=== PATIENT | female | born 1950 | race Caucasian/White ===

== ENCOUNTER 2023-10-06 06:28 | Inpatient (IN) | payer MEDICARE, OTHER ==
[~2023-10-06] VITALS: Ht 167.6 cm; Wt 68.8 kg
[~2023-10-06 06:28] MED LIST: APIX2.5T PO; ATOR10TA70 PO; FURO20TA4 PO; LAN0.125T PO; LOP25T PO; LOSA1TAB39 PO; METF-438 PO; PANT40TA54 PO
[2023-10-06 07:41] LABS: BASOPHILS # (AUTO) 0.1 X10'3 (0-0.2); BASOPHILS % (AUTO) 0.3 % (0-1); EOSINOPHILS % (AUTO) 0.1 % (0-6); HEMOGLOBIN 12.3 g/dl (12.0-16.0); LYMPHOCYTES # (AUTO) 1.6 X10'3 (1.1-4.8); LYMPHOCYTES % (AUTO) 8.9 % (21-51); MEAN CORPUSCULAR HEMOGLOBIN 26.6 PG (27.0-31.0); MEAN CORPUSCULAR HGB CONC 31.5 g/dL (33.0-36.5); MEAN CORPUSCULAR VOLUME 84.5 FL (78-98); MEAN PLATELET VOLUME 10.6 FL (7.4-10.4); MONOCYTES # (AUTO) 1.9 X10'3 (0-0.9); MONOCYTES % (AUTO) 10.5 % (2-12); NEUTROPHILS # (AUTO) 14.5 X10'3 (1.8-7.7); NEUTROPHILS % (AUTO) 80.2 % (42-75); PLATELET COUNT 170 X10'3 (140-440); RED BLOOD COUNT 4.61 X10'6 (4.20-5.60); RED CELL DISTRIBUTION WIDTH 14.1 % (11.5-14.5); WHITE BLOOD COUNT 18.1 X10'3 (4.5-11.0)
[2023-10-06] MEDS: ondansetron/PF 4mg/2ml inj IV ONE (07:42)
[2023-10-06] MEDS: morphine 4 MG/ML inj SYRINge IV ONE (07:43)
[2023-10-06 07:45] LABS: ALANINE AMINOTRANSFERASE 18 U/L (12-78); ALBUMIN 3.5 G/DL (3.4-5.0); ALBUMIN/GLOBULIN RATIO 0.9 (1.1-1.5); ALKALINE PHOSPHATASE 99 IU/L (46-116); ANION GAP 11 (8-16); ASPARTATE AMINO TRANSFERASE 16 U/L (10-37); BILIRUBIN,TOTAL 0.7 MG/DL (0.1-1.0); BLOOD UREA NITROGEN 45 MG/DL (7-18); BUN/CREATININE RATIO 16.5 (10.0-20.0); CALCIUM 11.1 MG/DL (8.5-10.1); CHLORIDE 101 MMOL/L (99-107); CREATININE 2.72 MG/DL (0.40-0.90); GLUCOSE 125 MG/DL (70-104); LIPASE > 375 U/L (16-77); POTASSIUM 4.9 MMOL/L (3.5-5.1); SODIUM 140 MMOL/L (135-145); TOTAL CARBON DIOXIDE 28.2 MMOL/L (24-32); TOTAL PROTEIN 7.2 G/DL (6.4-8.2); eCRCL 16 ML/MIN; eGFR 17 ML/MIN
[2023-10-06] MEDS: normal saline 1000ML IV soln IVB ONE ×2 (07:48→08:48)
[2023-10-06] MEDS ORDERED: METO25TA6 PO (09:56)
[2023-10-06] MEDS ORDERED: METO100T14 PO (09:56)
[2023-10-06] MEDS ORDERED: PANT-47 PO (09:57)
[2023-10-06] MEDS ORDERED: BUDE10.7 PO (09:58)
[2023-10-06] MEDS ORDERED: dextrose 50%-water 50ml dispensing syringe IV PRN ×2 (10:00)
[2023-10-06] MEDS ORDERED: magnesium 4gm in 100ml NS 100 ML IV PRN (10:00)
[2023-10-06] MEDS ORDERED: potassium Cl 40MEQ/1/2NS 520ml 520 ML IV PRN (10:00)
[2023-10-06] MEDS ORDERED: DEXTROSE 15 GM of carb/4 tabs (each vial/BOTTLE has 4 tablets) PO PRN ×2 (10:00)
[2023-10-06] MEDS ORDERED: HYDROmorphone/PF 0.2 MG/ML SYRINGE IV PRN (10:00)
[2023-10-06] MEDS ORDERED: glucagon, human recombinant 1mg kit SUBCUT PRN (10:00)
[2023-10-06] MEDS ORDERED: magnesium Cl slow-release 64mg tablet PO PRN (10:00)
[2023-10-06] MEDS ORDERED: acetaminophen 325mg tablet PO PRN (10:00)
[2023-10-06] MEDS ORDERED: potassium Cl 20 mEq SR tablet PO PRN (10:00)
[2023-10-06] MEDS: MESSAGE TO PHARMACY PO ONE (10:16)
[2023-10-06] MEDS: normal saline 1000ml 1,000 ML IV SCH (10:22)
[2023-10-06] MEDS: diltiazem 5mg/ml 5ml inj. IV ONE ×2 (10:24→15:19)
[2023-10-06] MEDS: HYDROmorphone inj. 0.5 MG/0.5 ML DISP.SYRIN IV PRN (10:29)
[2023-10-06] MEDS ORDERED: APIX2.5T PO (11:10)
[2023-10-06] MEDS: metoprolol tartrate 50mg tablet PO ONE (15:21)
[2023-10-06] MEDS: insulin glargine (Lantus) pen - multi-dose SQ SCH (19:46)
[2023-10-06] MEDS ORDERED: metoprolol tartrate 25mg tablet PO SCH (20:00)
[2023-10-06] MEDS: apixaban 5mg tablet PO SCH (20:18)
[2023-10-06] MEDS ORDERED: ipratropium/albuterol 3ml nebule NEB PRN (21:30)
[2023-10-06] MEDS: methylPREDNISolone sod succ 125mg/2ml vial IV ONE (22:16)
[2023-10-06 23:27] VITALS: PULSE 114; RESP 18; O2SAT 98
[2023-10-06] MEDS: ipratropium/albuterol 3ml nebule NEB SCH (23:27)
[2023-10-06 23:32] VITALS: PULSE 109; RESP 16
[2023-10-07] VITALS (13 sets, daily range): BP systolic 112–118; BP diastolic 53–62; PULSE 94–132; RESP 15–22; TEMP 97.8–98.6; O2SAT 94–98
[2023-10-07] MEDS: methylPREDNISolone sod succ 125mg/2ml vial IV SCH (02:48)
[2023-10-07 08:04] LABS: BASOPHILS % (AUTO) 0 % (0-1); EOSINOPHILS % (AUTO) 0 % (0-6); HEMATOCRIT 35.7 % (35.0-45.0); HEMOGLOBIN 11.2 g/dl (12.0-16.0); LYMPHOCYTES # (AUTO) 0.8 X10'3 (1.1-4.8); LYMPHOCYTES % (AUTO) 3.9 % (21-51); MEAN CORPUSCULAR HEMOGLOBIN 26.9 PG (27.0-31.0); MEAN CORPUSCULAR HGB CONC 31.3 g/dL (33.0-36.5); MEAN CORPUSCULAR VOLUME 85.8 FL (78-98); MEAN PLATELET VOLUME 10.3 FL (7.4-10.4); MONOCYTES # (AUTO) 0.7 X10'3 (0-0.9); MONOCYTES % (AUTO) 3.7 % (2-12); NEUTROPHILS # (AUTO) 18.2 X10'3 (1.8-7.7); NEUTROPHILS % (AUTO) 92.4 % (42-75); PLATELET COUNT 156 X10'3 (140-440); RED BLOOD COUNT 4.16 X10'6 (4.20-5.60); RED CELL DISTRIBUTION WIDTH 14.3 % (11.5-14.5); WHITE BLOOD COUNT 19.8 X10'3 (4.5-11.0)
[2023-10-07 08:33] LABS: ALANINE AMINOTRANSFERASE 17 U/L (12-78); ALBUMIN/GLOBULIN RATIO 0.8 (1.1-1.5); ALKALINE PHOSPHATASE 89 IU/L (46-116); AMYLASE 300 U/L (25-115); ANION GAP 12 (8-16); ASPARTATE AMINO TRANSFERASE 17 U/L (10-37); BILIRUBIN,TOTAL 0.6 MG/DL (0.1-1.0); BLOOD UREA NITROGEN 47 MG/DL (7-18); BUN/CREATININE RATIO 20.3 (10.0-20.0); CALCIUM 9.6 MG/DL (8.5-10.1); CHLORIDE 106 MMOL/L (99-107); CHOL/HDL RATIO 2.4 (0.00-4.99); CHOLESTEROL 106 MG/DL (0-200); CREATININE 2.31 MG/DL (0.40-0.90); GLUCOSE 158 MG/DL (70-104); HDL CHOLESTEROL 45 MG/DL (35-60); LDL CHOLESTEROL 41 MG/DL (50-100); MAGNESIUM 1.8 MG/DL (1.5-2.4); PHOSPHORUS 4.9 MG/DL (2.3-4.5); POTASSIUM 4.7 MMOL/L (3.5-5.1); SODIUM 146 MMOL/L (135-145); TOTAL CARBON DIOXIDE 28.2 MMOL/L (24-32); TOTAL PROTEIN 6.9 G/DL (6.4-8.2); TRIGLYCERIDES 81 MG/DL (20-135); eCRCL 19 ML/MIN; eGFR 21 ML/MIN
[2023-10-07] MEDS: normal saline 1000ML IV soln IVB ONE (08:44)
[2023-10-07] MEDS: furosemide 20MG tablet PO SCH (08:56)
[2023-10-07] MEDS: pantoprazole 40mg Tablet.DR PO SCH (08:56)
[2023-10-07] MEDS: atorvastatin 10mg tablet PO SCH (09:01)
[2023-10-07] MEDS: losartan 50mg tablet PO SCH (09:01)
[2023-10-07] MEDS: HYDROchlorothiazide 12.5mg capsule PO SCH (09:01)
[2023-10-07] MEDS: metoprolol tartrate 50mg tablet PO SCH (09:02)
[2023-10-07 09:04] LABS: LIPASE > 375 U/L (16-77)
[2023-10-07] MEDS: CefTRIAXone/D5W-Rocephin 1gm 50 ML IV SCH (09:44)
[2023-10-07] MEDS: azithromycin/NS 500mg/250ml 250 ML IV SCH (11:21)
[2023-10-07] MEDS: insulin Lispro (HumaLOG) vial - multi-dose SQ SCH (20:28)
[2023-10-08] VITALS (19 sets, daily range): BP systolic 106–147; BP diastolic 45–73; PULSE 73–134; RESP 13–33; TEMP 97.6–98.9; O2SAT 94–99
[2023-10-08 06:46] LABS: BASOPHILS % (AUTO) 0 % (0-1); EOSINOPHILS % (AUTO) 0 % (0-6); HEMATOCRIT 33.4 % (35.0-45.0); HEMOGLOBIN 10.6 g/dl (12.0-16.0); LYMPHOCYTES # (AUTO) 0.5 X10'3 (1.1-4.8); LYMPHOCYTES % (AUTO) 3.5 % (21-51); MEAN CORPUSCULAR HEMOGLOBIN 26.8 PG (27.0-31.0); MEAN CORPUSCULAR HGB CONC 31.8 g/dL (33.0-36.5); MEAN CORPUSCULAR VOLUME 84.4 FL (78-98); MEAN PLATELET VOLUME 10.3 FL (7.4-10.4); MONOCYTES # (AUTO) 0.6 X10'3 (0-0.9); MONOCYTES % (AUTO) 4.2 % (2-12); NEUTROPHILS # (AUTO) 13.8 X10'3 (1.8-7.7); NEUTROPHILS % (AUTO) 92.3 % (42-75); PLATELET COUNT 169 X10'3 (140-440); RED BLOOD COUNT 3.96 X10'6 (4.20-5.60); RED CELL DISTRIBUTION WIDTH 14.1 % (11.5-14.5); WHITE BLOOD COUNT 14.9 X10'3 (4.5-11.0)
[2023-10-08 06:58] LABS: ALANINE AMINOTRANSFERASE 17 U/L (12-78); ALBUMIN 2.7 G/DL (3.4-5.0); ALBUMIN/GLOBULIN RATIO 0.8 (1.1-1.5); ALKALINE PHOSPHATASE 74 IU/L (46-116); AMYLASE 125 U/L (25-115); ANION GAP 11 (8-16); ASPARTATE AMINO TRANSFERASE 15 U/L (10-37); BILIRUBIN,TOTAL 0.4 MG/DL (0.1-1.0); BLOOD UREA NITROGEN 58 MG/DL (7-18); BUN/CREATININE RATIO 26.2 (10.0-20.0); CALCIUM 9.3 MG/DL (8.5-10.1); CHLORIDE 106 MMOL/L (99-107); CREATININE 2.21 MG/DL (0.40-0.90); GLUCOSE 158 MG/DL (70-104); LIPASE 245 U/L (16-77); MAGNESIUM 1.8 MG/DL (1.5-2.4); PHOSPHORUS 4.7 MG/DL (2.3-4.5); POTASSIUM 3.6 MMOL/L (3.5-5.1); SODIUM 143 MMOL/L (135-145); TOTAL CARBON DIOXIDE 26.1 MMOL/L (24-32); TOTAL PROTEIN 6.3 G/DL (6.4-8.2); eCRCL 20 ML/MIN; eGFR 22 ML/MIN
[2023-10-08] MEDS: HYDROcodone/acetaminophen 10/325mg tab PO PRN (08:20)
[2023-10-08] MEDS: PERFLUTREN PROTEIN-A MICROSPHR (Optison) 0.22 MG/ML 3ML VIAL IV ONE (08:55)
[2023-10-08] MEDS: diltiazem 5mg/ml 5ml inj. IV ONE (15:58)
[2023-10-08] MEDS: diltiazem-NS 100mg/100ml 100 ML IV SCH (20:10)
[2023-10-08] MEDS: ondansetron/PF 4mg/2ml inj IV PRN (20:35)
[2023-10-09] VITALS (23 sets, daily range): BP systolic 105–151; BP diastolic 60–83; PULSE 64–120; RESP 12–23; TEMP 97.5–98.1; O2SAT 92–99
[2023-10-09 07:18] LABS: BASOPHILS % (AUTO) 0.1 % (0-1); EOSINOPHILS % (AUTO) 0 % (0-6); HEMATOCRIT 32.5 % (35.0-45.0); HEMOGLOBIN 10.5 g/dl (12.0-16.0); LYMPHOCYTES # (AUTO) 0.5 X10'3 (1.1-4.8); LYMPHOCYTES % (AUTO) 3.4 % (21-51); MEAN CORPUSCULAR HEMOGLOBIN 26.8 PG (27.0-31.0); MEAN CORPUSCULAR HGB CONC 32.3 g/dL (33.0-36.5); MEAN CORPUSCULAR VOLUME 83.1 FL (78-98); MONOCYTES # (AUTO) 0.7 X10'3 (0-0.9); MONOCYTES % (AUTO) 4.5 % (2-12); NEUTROPHILS # (AUTO) 14.5 X10'3 (1.8-7.7); PLATELET COUNT 196 X10'3 (140-440); RED BLOOD COUNT 3.91 X10'6 (4.20-5.60); WHITE BLOOD COUNT 15.8 X10'3 (4.5-11.0)
[2023-10-09 07:49] LABS: ALANINE AMINOTRANSFERASE 27 U/L (12-78); ALBUMIN 2.6 G/DL (3.4-5.0); ALBUMIN/GLOBULIN RATIO 0.8 (1.1-1.5); ALKALINE PHOSPHATASE 110 IU/L (46-116); AMYLASE 119 U/L (25-115); ANION GAP 12 (8-16); ASPARTATE AMINO TRANSFERASE 29 U/L (10-37); BILIRUBIN,TOTAL 0.5 MG/DL (0.1-1.0); BLOOD UREA NITROGEN 66 MG/DL (7-18); BUN/CREATININE RATIO 35.7 (10.0-20.0); CALCIUM 9.1 MG/DL (8.5-10.1); CHLORIDE 107 MMOL/L (99-107); CREATININE 1.85 MG/DL (0.40-0.90); GLUCOSE 143 MG/DL (70-104); LIPASE 249 U/L (16-77); MAGNESIUM 1.8 MG/DL (1.5-2.4); PHOSPHORUS 3.7 MG/DL (2.3-4.5); POTASSIUM 3.2 MMOL/L (3.5-5.1); SODIUM 143 MMOL/L (135-145); TOTAL CARBON DIOXIDE 24.4 MMOL/L (24-32); eCRCL 24 ML/MIN; eGFR 27 ML/MIN
[2023-10-09] MEDS: docusate sod 100mg capsule PO PRN (08:39)
[2023-10-09] MEDS: HYDROcodone/acetaminophen 5mg/325mg tablet PO PRN (08:39)
[2023-10-09] MEDS: potassium Cl 20 mEq SR tablet PO PRN ×2 (09:51→13:11)
[2023-10-09] MEDS ORDERED: potassium Cl 20 mEq SR tablet PO PRN (12:50)
[2023-10-09] MEDS: metoprolol tartrate 50mg tablet PO ONE (13:54)
[2023-10-09] MEDS: metoprolol tartrate 50mg tablet PO SCH (19:26)
[2023-10-10] VITALS (16 sets, daily range): BP systolic 117–140; BP diastolic 47–79; PULSE 89–123; RESP 16–24; TEMP 97.4–98.1; O2SAT 90–100
[2023-10-10] MEDS: mag hydrox/Alum hydrox/simeth 30ml oral suspension PO PRN (04:34)
[2023-10-10 07:02] LABS: BASOPHILS % (AUTO) 0.1 % (0-1); EOSINOPHILS % (AUTO) 0 % (0-6); HEMATOCRIT 33.4 % (35.0-45.0); HEMOGLOBIN 10.6 g/dl (12.0-16.0); LYMPHOCYTES # (AUTO) 0.5 X10'3 (1.1-4.8); LYMPHOCYTES % (AUTO) 3.6 % (21-51); MEAN CORPUSCULAR HEMOGLOBIN 26.7 PG (27.0-31.0); MEAN CORPUSCULAR HGB CONC 31.8 g/dL (33.0-36.5); MEAN CORPUSCULAR VOLUME 83.9 FL (78-98); MEAN PLATELET VOLUME 9.6 FL (7.4-10.4); MONOCYTES # (AUTO) 0.7 X10'3 (0-0.9); MONOCYTES % (AUTO) 5.9 % (2-12); NEUTROPHILS # (AUTO) 11.5 X10'3 (1.8-7.7); NEUTROPHILS % (AUTO) 90.4 % (42-75); PLATELET COUNT 211 X10'3 (140-440); RED BLOOD COUNT 3.98 X10'6 (4.20-5.60); WHITE BLOOD COUNT 12.7 X10'3 (4.5-11.0)
[2023-10-10 07:32] LABS: ALANINE AMINOTRANSFERASE 25 U/L (12-78); ALBUMIN 2.6 G/DL (3.4-5.0); ALBUMIN/GLOBULIN RATIO 0.8 (1.1-1.5); ALKALINE PHOSPHATASE 94 IU/L (46-116); AMYLASE 108 U/L (25-115); ANION GAP 11 (8-16); ASPARTATE AMINO TRANSFERASE 14 U/L (10-37); BILIRUBIN,TOTAL 0.5 MG/DL (0.1-1.0); BLOOD UREA NITROGEN 68 MG/DL (7-18); BUN/CREATININE RATIO 33.2 (10.0-20.0); CHLORIDE 106 MMOL/L (99-107); CREATININE 2.05 MG/DL (0.40-0.90); GLUCOSE 183 MG/DL (70-104); LIPASE 171 U/L (16-77); MAGNESIUM 1.7 MG/DL (1.5-2.4); PHOSPHORUS 4.6 MG/DL (2.3-4.5); POTASSIUM 3.7 MMOL/L (3.5-5.1); SODIUM 144 MMOL/L (135-145); TOTAL CARBON DIOXIDE 26.9 MMOL/L (24-32); eCRCL 22 ML/MIN; eGFR 24 ML/MIN
[2023-10-10] MEDS: magnesium hydroxide 30ml (MOM) UD suspension PO PRN (08:16)
[2023-10-10 10:32] LABS: ABG BASE EXCESS -0.8 mmol/L (-2.0-2.0); ABG HCO3 24.3 mmol/L (22.0-26.0); ABG OXYGEN SATURATION 97.7 % (94-97); ABG PCO2 (T) 41.6 mmHg (32.0-45.0); ABG PH (T) 7.383 (7.350-7.450); ABG PO2 (T) 100.7 mmHg (75.0-100.0); ALLEN'S TEST POSITIVE; FCOHb 0.1 % (0.0-3.9); FHHb 2.3 % (0.0-5.0); FLOW 4 L/min; FMetHb 0.3 % (0.0-1.5); FO2Hb 97.3 % (94-97); MODE NASAL CANNULA; PATIENT TEMPERATURE 36.9; TOTAL HEMOGLOBIN 12.3 G/dl (12.0-16.0)
[2023-10-10] MEDS: furosemide 40mg/4ml inj IV ONE (11:25)
[2023-10-10] MEDS: morphine 4 MG/ML inj SYRINge IV ONE (22:25)
[2023-10-10] MEDS ORDERED: naloxone 0.4 mg/ml inj IV PRN (23:45)
[2023-10-11] VITALS (14 sets, daily range): BP systolic 124–151; BP diastolic 63–92; PULSE 89–120; RESP 12–22; TEMP 96.9–97.9; O2SAT 89–99
[2023-10-11] MEDS: furosemide 40mg/4ml inj IV ONE (00:05)
[2023-10-11] MEDS: HYDROmorphone inj. 0.5 MG/0.5 ML DISP.SYRIN IV ONE (00:05)
[2023-10-11] MEDS ORDERED: pantoprazole 40 MG vial IV ONE (00:20)
[2023-10-11] MEDS ORDERED: HYDROmorph/NS 0.2 mg/ml PCA 100 ML IV SCH (01:00)
[2023-10-11] MEDS: normal saline 1000ml 1,000 ML IV SCH (01:02)
[2023-10-11] MEDS: HYDROmorph/NS 0.2 mg/ml PCA 100 ML IV SCH (03:23)
[2023-10-11 06:29] LABS: BASOPHILS % (AUTO) 0.1 % (0-1); EOSINOPHILS % (AUTO) 0 % (0-6); HEMATOCRIT 36.3 % (35.0-45.0); HEMOGLOBIN 11.6 g/dl (12.0-16.0); LYMPHOCYTES # (AUTO) 0.5 X10'3 (1.1-4.8); LYMPHOCYTES % (AUTO) 3.2 % (21-51); MEAN CORPUSCULAR HEMOGLOBIN 26.4 PG (27.0-31.0); MEAN CORPUSCULAR HGB CONC 31.8 g/dL (33.0-36.5); MEAN CORPUSCULAR VOLUME 83.1 FL (78-98); MONOCYTES # (AUTO) 1.1 X10'3 (0-0.9); MONOCYTES % (AUTO) 7.2 % (2-12); NEUTROPHILS # (AUTO) 13.5 X10'3 (1.8-7.7); NEUTROPHILS % (AUTO) 89.5 % (42-75); PLATELET COUNT 217 X10'3 (140-440); RED BLOOD COUNT 4.37 X10'6 (4.20-5.60); RED CELL DISTRIBUTION WIDTH 14.3 % (11.5-14.5); WHITE BLOOD COUNT 15.1 X10'3 (4.5-11.0)
[2023-10-11] MEDS: potassium cl 20mEq in 1/2 NS 1,000 ML IV SCH (06:45)
[2023-10-11 07:03] LABS: ALANINE AMINOTRANSFERASE 22 U/L (12-78); ALBUMIN 2.7 G/DL (3.4-5.0); ALBUMIN/GLOBULIN RATIO 0.9 (1.1-1.5); ALKALINE PHOSPHATASE 90 IU/L (46-116); AMYLASE 148 U/L (25-115); ANION GAP 11 (8-16); ASPARTATE AMINO TRANSFERASE 13 U/L (10-37); BILIRUBIN,TOTAL 0.6 MG/DL (0.1-1.0); BLOOD UREA NITROGEN 72 MG/DL (7-18); BUN/CREATININE RATIO 35.8 (10.0-20.0); CALCIUM 9.3 MG/DL (8.5-10.1); CHLORIDE 109 MMOL/L (99-107); CREATININE 2.01 MG/DL (0.40-0.90); GLUCOSE 158 MG/DL (70-104); LIPASE 186 U/L (16-77); MAGNESIUM 2.2 MG/DL (1.5-2.4); PHOSPHORUS 5.2 MG/DL (2.3-4.5); POTASSIUM 3.2 MMOL/L (3.5-5.1); SODIUM 150 MMOL/L (135-145); TOTAL CARBON DIOXIDE 29.7 MMOL/L (24-32); TOTAL PROTEIN 5.8 G/DL (6.4-8.2); eCRCL 22 ML/MIN; eGFR 24 ML/MIN
[2023-10-11] MEDS ORDERED: pantoprazole 40 MG vial IV SCH (08:00)
[2023-10-11] MEDS: furosemide 40mg/4ml inj IV SCH (08:00)
[2023-10-11] MEDS ORDERED: apixaban 2.5mg tablet PO SCH ×2 (08:00)
[2023-10-11] MEDS: PCA WASTE DOCUMENTATION 1 MG ML MC SCH (08:00)
[2023-10-11] MEDS ORDERED: furosemide 40mg/4ml inj IV SCH (08:00)
[2023-10-11] MEDS: pantoprazole 40 MG vial IV SCH (08:56)
[2023-10-11] MEDS: potassium Cl 40MEQ/1/2NS 520ml 520 ML IV PRN (13:34)
[2023-10-12] VITALS (10 sets, daily range): BP systolic 122–153; BP diastolic 82–101; PULSE 92–182; RESP 14–32; TEMP 97.5–98; O2SAT 93–98
[2023-10-12 07:06] LABS: AMYLASE 124 U/L (25-115); LIPASE 135 U/L (16-77)
[2023-10-12] MEDS ORDERED: LORazepam 0.5 MG tablet PO PRN (12:35)
[2023-10-12] MEDS: LORazepam 2 mg/ml vial IV PRN (14:45)
[2023-10-12] MEDS: traZODone 50mg tablet PO SCH (20:30)
[2023-10-12] MEDS: metoprolol tartrate 1mg/ml inj IV ONE (22:23)
[2023-10-12] MEDS: nicotine 7mg patch - 24hr TD ONE (22:26)
[2023-10-13] VITALS (15 sets, daily range): BP systolic 115–148; BP diastolic 60–95; PULSE 94–139; RESP 18–35; TEMP 97.1–98.1; O2SAT 93–100
[2023-10-13] MEDS: nicotine 7mg patch - 24hr TD SCH (08:45)
[2023-10-13 09:49] LABS: BASOPHILS % (AUTO) 0.1 % (0-1); EOSINOPHILS % (AUTO) 0 % (0-6); HEMATOCRIT 37.1 % (35.0-45.0); HEMOGLOBIN 11.6 g/dl (12.0-16.0); LYMPHOCYTES # (AUTO) 0.7 X10'3 (1.1-4.8); LYMPHOCYTES % (AUTO) 3.5 % (21-51); MEAN CORPUSCULAR HEMOGLOBIN 25.9 PG (27.0-31.0); MEAN CORPUSCULAR HGB CONC 31.3 g/dL (33.0-36.5); MEAN PLATELET VOLUME 9.7 FL (7.4-10.4); MONOCYTES % (AUTO) 5.1 % (2-12); NEUTROPHILS # (AUTO) 17.6 X10'3 (1.8-7.7); NEUTROPHILS % (AUTO) 91.3 % (42-75); PLATELET COUNT 238 X10'3 (140-440); RED BLOOD COUNT 4.47 X10'6 (4.20-5.60); WHITE BLOOD COUNT 19.3 X10'3 (4.5-11.0)
[2023-10-13 10:21] LABS: ALANINE AMINOTRANSFERASE 19 U/L (12-78); ALBUMIN 2.3 G/DL (3.4-5.0); ALBUMIN/GLOBULIN RATIO 0.8 (1.1-1.5); ALKALINE PHOSPHATASE 74 IU/L (46-116); ANION GAP 12 (8-16); ASPARTATE AMINO TRANSFERASE 21 U/L (10-37); BILIRUBIN,TOTAL 0.6 MG/DL (0.1-1.0); BLOOD UREA NITROGEN 80 MG/DL (7-18); BUN/CREATININE RATIO 49.7 (10.0-20.0); CALCIUM 9.6 MG/DL (8.5-10.1); CHLORIDE 112 MMOL/L (99-107); CREATININE 1.61 MG/DL (0.40-0.90); GLUCOSE 165 MG/DL (70-104); SODIUM 149 MMOL/L (135-145); TOTAL CARBON DIOXIDE 24.6 MMOL/L (24-32); TOTAL PROTEIN 5.3 G/DL (6.4-8.2); eCRCL 29 ML/MIN; eGFR 31 ML/MIN
[2023-10-14] VITALS (10 sets, daily range): BP systolic 121–137; BP diastolic 63–85; PULSE 98–126; RESP 16–23; TEMP 97–97.5; O2SAT 93–99
[2023-10-14] MEDS: insulin regular, human U-100 3ml vial - multi-dose SQ SCH (02:15)
[2023-10-14] MEDS: pantoprazole 40mg Tablet.DR PO SCH (07:30)
[2023-10-14] MEDS: sodium chloride 0.45% 1,000 ML IV SCH (08:21)
[2023-10-14 08:41] LABS: ALANINE AMINOTRANSFERASE 24 U/L (12-78); ALBUMIN 2.2 G/DL (3.4-5.0); ALBUMIN/GLOBULIN RATIO 0.8 (1.1-1.5); ALKALINE PHOSPHATASE 76 IU/L (46-116); ANION GAP 10 (8-16); ASPARTATE AMINO TRANSFERASE 20 U/L (10-37); BILIRUBIN,TOTAL 0.5 MG/DL (0.1-1.0); BLOOD UREA NITROGEN 84 MG/DL (7-18); BUN/CREATININE RATIO 55.6 (10.0-20.0); CALCIUM 9.5 MG/DL (8.5-10.1); CHLORIDE 114 MMOL/L (99-107); CREATININE 1.51 MG/DL (0.40-0.90); GLUCOSE 213 MG/DL (70-104); PREALBUMIN 14.8 MG/DL (19-36); SODIUM 149 MMOL/L (135-145); TOTAL CARBON DIOXIDE 25.1 MMOL/L (24-32); eCRCL 31 ML/MIN; eGFR 34 ML/MIN
[2023-10-14 09:05] LABS: POTASSIUM 4.4 MMOL/L (3.5-5.1)
[2023-10-14] MEDS: HYDROmorphone inj. 0.5 MG/0.5 ML DISP.SYRIN IV PRN (14:05)
[2023-10-14] MEDS: albumin (human) 25% 100 ML IV solution IV ONE (14:55)
[2023-10-14 15:07] LABS: ABG BASE EXCESS 0.4 mmol/L (-2.0-2.0); ABG HCO3 26.2 mmol/L (22.0-26.0); ABG OXYGEN SATURATION 96.2 % (94-97); ABG PCO2 (T) 44.7 mmHg (32.0-45.0); ABG PH (T) 7.381 (7.350-7.450); ABG PO2 (T) 79.6 mmHg (75.0-100.0); ALLEN'S TEST POSITIVE; FCOHb 0.4 % (0.0-3.9); FHHb 3.8 % (0.0-5.0); FMetHb 0.3 % (0.0-1.5); FO2Hb 95.5 % (94-97); MODE NASAL CANNULA; PATIENT TEMPERATURE 36.1; PEEP 5 cm H2O; TOTAL HEMOGLOBIN 13.2 G/dl (12.0-16.0)
[2023-10-14] MEDS: metroNIDAZOLE-Flagyl 500mg/NS 100 ML IV SCH (16:31)
[2023-10-14] MEDS: levoFLOXACIN-Levaquin 500mg/D5 100 ML IV SCH (17:44)
[2023-10-14 17:45] LABS: URINE HCG NEGATIVE (NEG)
[2023-10-14 18:31] LABS: SODIUM,URINE RANDOM < 15 MEQ/L; TOTAL PROTEIN,URINE RANDOM 46.7 MG/DL
[2023-10-15] VITALS (12 sets, daily range): BP systolic 106–121; BP diastolic 50–80; PULSE 98–125; RESP 0–22; TEMP 97.2–98.1; O2SAT 92–98
[2023-10-15 06:44] LABS: BASOPHILS % (AUTO) 0.1 % (0-1); EOSINOPHILS # (AUTO) 0.1 X10'3 (0-0.9); EOSINOPHILS % (AUTO) 0.4 % (0-6); HEMATOCRIT 35.7 % (35.0-45.0); HEMOGLOBIN 11.1 g/dl (12.0-16.0); LYMPHOCYTES # (AUTO) 0.5 X10'3 (1.1-4.8); LYMPHOCYTES % (AUTO) 2.3 % (21-51); MEAN CORPUSCULAR HEMOGLOBIN 26.5 PG (27.0-31.0); MEAN CORPUSCULAR HGB CONC 31.2 g/dL (33.0-36.5); MONOCYTES # (AUTO) 1.1 X10'3 (0-0.9); MONOCYTES % (AUTO) 5.1 % (2-12); NEUTROPHILS # (AUTO) 20.9 X10'3 (1.8-7.7); NEUTROPHILS % (AUTO) 92.1 % (42-75); PLATELET COUNT 180 X10'3 (140-440); RED CELL DISTRIBUTION WIDTH 14.4 % (11.5-14.5); WHITE BLOOD COUNT 22.6 X10'3 (4.5-11.0)
[2023-10-15] MEDS: LidoCAINE 2% Topical Jelly 11mL syringe TOP ONE ×2 (08:35→08:40)
[2023-10-15 10:04] LABS: BILIRUBIN,URINE NEGATIVE (Neg); CLARITY,URINE CLEAR (Clear); COLOR,URINE YELLOW (Yellow); GLUCOSE, URINE 100 mg/dl (Neg); KETONES,URINE NEGATIVE (Neg); LEUKOCYTE ESTERASE ,URINE NEGATIVE (Neg); NITRITES, URINE NEGATIVE (Neg); OCCULT BLOOD,URINE TRACE-INTACT (Neg); PH,URINE 5.5 (4.8-8.0); PROTEIN,URINE NEGATIVE (Neg); UROBILINOGEN,URINE 0.2 E.U/dL (0.2-1.0)
[2023-10-15 10:19] LABS: UA COLLECTION TYPE NON-SPECIFIED
[2023-10-15 10:25] LABS: BACTERIA,URINE NONE SEEN /HPF (Neg); SQUAMOUS EPITHELIAL CELL,UR FEW /LPF (FEW); WBC,URINE 0-4 /HPF (0-4)
[2023-10-15] MEDS: pantoprazole 40 MG vial IV ONE (11:55)
[2023-10-15] MEDS ORDERED: acetaminophen 325mg tablet CORPAK PRN (12:00)
[2023-10-15] MEDS ORDERED: DEXTROSE 15 GM of carb/4 tabs (each vial/BOTTLE has 4 tablets) CORPAK PRN ×2 (12:01)
[2023-10-15] MEDS ORDERED: docusate sodium 100mg/10ml UD cup CORPAK PRN (12:02)
[2023-10-15] MEDS ORDERED: magnesium hydroxide 30ml (MOM) UD suspension CORPAK PRN (12:05)
[2023-10-15] MEDS ORDERED: mag hydrox/Alum hydrox/simeth 30ml oral suspension CORPAK PRN (12:05)
[2023-10-15 12:24] LABS: ALANINE AMINOTRANSFERASE 29 U/L (12-78); ALBUMIN 2.6 G/DL (3.4-5.0); ALBUMIN/GLOBULIN RATIO 1.2 (1.1-1.5); ALKALINE PHOSPHATASE 69 IU/L (46-116); ANION GAP 12 (8-16); ASPARTATE AMINO TRANSFERASE 18 U/L (10-37); BILIRUBIN,TOTAL 0.4 MG/DL (0.1-1.0); BLOOD UREA NITROGEN 82 MG/DL (7-18); BUN/CREATININE RATIO 58.2 (10.0-20.0); CALCIUM 9.5 MG/DL (8.5-10.1); CHLORIDE 114 MMOL/L (99-107); CREATINE KINASE 45 U/L (26-192); CREATININE 1.41 MG/DL (0.40-0.90); GLUCOSE 261 MG/DL (70-104); PHOSPHORUS 3.8 MG/DL (2.3-4.5); POTASSIUM 3.8 MMOL/L (3.5-5.1); SODIUM 151 MMOL/L (135-145); TOTAL CARBON DIOXIDE 25.4 MMOL/L (24-32); TOTAL PROTEIN 4.8 G/DL (6.4-8.2); eCRCL 33 ML/MIN; eGFR 36 ML/MIN
[2023-10-15] MEDS: traZODone 50mg tablet CORPAK SCH (20:00)
[2023-10-15] MEDS: metoprolol tartrate 50mg tablet CORPAK SCH (20:00)
[2023-10-15] MEDS: meropenem inj 500 MG in normal saline 100ml IV soln 100 ML IV SCH (22:00)
[2023-10-15] MEDS: pantoprazole 40 MG vial IV SCH (22:15)
[2023-10-15] MEDS ORDERED: propofol inj 20 ML IV ONE (23:35)
[2023-10-15] MEDS ORDERED: rocuronium 10mg/ml inj IV ONE (23:35)
[2023-10-15] MEDS ORDERED: fentaNYL /PF 50mcg/ml 5ml ampule ONE (23:35)
[2023-10-15] MEDS ORDERED: NORepinephrine 8 MG in NS 250 ML BAG (32 mcg/ml) IV ONE (23:43)
[2023-10-15] MEDS ORDERED: ePHEDrine 50MG/ML INJ. ONE (23:43)
[2023-10-15] MEDS ORDERED: sevoflurane 250ml liquid IH ONE (23:43)
[2023-10-16] VITALS (44 sets, daily range): BP systolic 90–151; BP diastolic 32–77; PULSE 81–129; RESP 11–32; TEMP 96.7–97.6; O2SAT 92–100
[2023-10-16] MEDS ORDERED: ceFOXitin 1000 MG inj ONE ×2 (00:03)
[2023-10-16] MEDS ORDERED: albumin (Human) 5% 250ml 250 ML IV ONE ×3 (00:20→00:58)
[2023-10-16] MEDS ORDERED: naloxone 0.4 mg/ml inj IV PRN (01:25)
[2023-10-16] MEDS: fentaNYL/PF 50MCG/1 ML 2ML syringe ONE (01:53)
[2023-10-16 02:05] LABS: ABG BASE EXCESS 0.4 mmol/L (-2.0-2.0); ABG HCO3 25.5 mmol/L (22.0-26.0); ABG OXYGEN SATURATION 90.4 % (94-97); ABG PCO2 (T) 41.4 mmHg (32.0-45.0); ABG PH (T) 7.403 (7.350-7.450); ABG PO2 (T) 55.2 mmHg (75.0-100.0); ALLEN'S TEST POSITIVE; FCOHb 0.2 % (0.0-3.9); FHHb 9.6 % (0.0-5.0); FMetHb 0.3 % (0.0-1.5); FO2Hb 89.9 % (94-97); MODE VENT - SIMV; PATIENT TEMPERATURE 36.1; PEEP 5 cm H2O; RESPIRATORY RATE 12 b/min; TIDAL VOLUME 500 mL; TOTAL HEMOGLOBIN 11.1 G/dl (12.0-16.0)
[2023-10-16] MEDS: midazolam 100mg in NS 100ml 100 ML IV PRN (02:28)
[2023-10-16 03:05] LABS: ALANINE AMINOTRANSFERASE 25 U/L (12-78); ALBUMIN 2.8 G/DL (3.4-5.0); ALBUMIN/GLOBULIN RATIO 1.9 (1.1-1.5); ALKALINE PHOSPHATASE 51 IU/L (46-116); ANION GAP 7 (8-16); ASPARTATE AMINO TRANSFERASE 16 U/L (10-37); BILIRUBIN,TOTAL 0.8 MG/DL (0.1-1.0); BLOOD UREA NITROGEN 79 MG/DL (7-18); BUN/CREATININE RATIO 48.5 (10.0-20.0); CHLORIDE 115 MMOL/L (99-107); CREATININE 1.63 MG/DL (0.40-0.90); GLUCOSE 175 MG/DL (70-104); MAGNESIUM 1.7 MG/DL (1.5-2.4); PHOSPHORUS 3.7 MG/DL (2.3-4.5); POTASSIUM 3.4 MMOL/L (3.5-5.1); SODIUM 152 MMOL/L (135-145); TOTAL CARBON DIOXIDE 29.7 MMOL/L (24-32); TOTAL PROTEIN 4.3 G/DL (6.4-8.2); eCRCL 28 ML/MIN; eGFR 31 ML/MIN
[2023-10-16 03:25] LABS: BASOPHILS # (AUTO) 0.1 X10'3 (0-0.2); BASOPHILS % (AUTO) 0.2 % (0-1); EOSINOPHILS % (AUTO) 0.1 % (0-6); HEMOGLOBIN 10.2 g/dl (12.0-16.0); LYMPHOCYTES # (AUTO) 0.8 X10'3 (1.1-4.8); LYMPHOCYTES % (AUTO) 2.4 % (21-51); MEAN CORPUSCULAR HEMOGLOBIN 26.3 PG (27.0-31.0); MEAN CORPUSCULAR HGB CONC 31.9 g/dL (33.0-36.5); MEAN CORPUSCULAR VOLUME 82.4 FL (78-98); MEAN PLATELET VOLUME 10.5 FL (7.4-10.4); MONOCYTES % (AUTO) 2.7 % (2-12); NEUTROPHILS % (AUTO) 94.6 % (42-75); PLATELET COUNT 139 X10'3 (140-440); RED BLOOD COUNT 3.89 X10'6 (4.20-5.60)
[2023-10-16 03:32] LABS: WHITE BLOOD COUNT 34.9 X10'3 (4.5-11.0)
[2023-10-16 04:19] LABS: PLATELET ESTIMATE DECREASED; TOTAL CELLS COUNTED 100
[2023-10-16 04:22] LABS: ELLIPTOCYTES FEW; HYPOCHROMASIA 1+; POIKILOCYTOSIS FEW
[2023-10-16 04:23] LABS: HYPERSEGMENTED NEUTROPHILS FEW; LARGE PLATELETS FEW
[2023-10-16] MEDS ORDERED: magnesium 2GM in 50ml NS 50 ML IV PRN (04:25)
[2023-10-16] MEDS ORDERED: magnesium 4gm in 100ml NS 100 ML IV PRN (04:25)
[2023-10-16] MEDS: potassium Cl 40MEQ/270ML bag 270 ML IV PRN (05:22)
[2023-10-16] MEDS: albumin (Human) 5% 250ml 250 ML IV ONE ×6 (05:48→21:05)
[2023-10-16] MEDS: losartan 50mg tablet CORPAK SCH (08:00)
[2023-10-16] MEDS: atorvastatin 10mg tablet CORPAK SCH (08:00)
[2023-10-16] MEDS: diltiazem 5mg/ml 5ml inj. IV ONE (08:46)
[2023-10-16] MEDS ORDERED: SODIUM CHLORIDE 0.45% IV SCH (09:00)
[2023-10-16] MEDS ORDERED: Potassium Cl inj 40 MEQ in sodium chloride 0.45% 980 ML IV SCH (09:00)
[2023-10-16] MEDS ORDERED: POTASSIUM ACETATE IV SCH (09:00)
[2023-10-16 09:32] LABS: BILIRUBIN,URINE NEGATIVE (Neg); CLARITY,URINE SLIGHTLY CLOUDY (Clear); COLOR,URINE YELLOW (Yellow); GLUCOSE, URINE NEGATIVE (Neg); KETONES,URINE TRACE mg/dl (Neg); LEUKOCYTE ESTERASE ,URINE NEGATIVE (Neg); NITRITES, URINE NEGATIVE (Neg); OCCULT BLOOD,URINE SMALL (Neg); PH,URINE 5.5 (4.8-8.0); PROTEIN,URINE NEGATIVE (Neg); UROBILINOGEN,URINE 0.2 E.U/dL (0.2-1.0)
[2023-10-16] MEDS: diltiazem-NS 100mg/100ml 100 ML IV SCH (09:33)
[2023-10-16] MEDS: fluconazole-Diflucan 200mg/NS 100 ML IV SCH (09:33)
[2023-10-16] MEDS: Potassium Cl inj 40 MEQ in sodium chloride 0.45% 1,000 ML IV SCH (09:34)
[2023-10-16 09:44] LABS: ALANINE AMINOTRANSFERASE 21 U/L (12-78); ALBUMIN 3.2 G/DL (3.4-5.0); ALBUMIN/GLOBULIN RATIO 2.5 (1.1-1.5); ALKALINE PHOSPHATASE 37 IU/L (46-116); ANION GAP 11 (8-16); ASPARTATE AMINO TRANSFERASE 12 U/L (10-37); BILIRUBIN,TOTAL 1.2 MG/DL (0.1-1.0); BLOOD UREA NITROGEN 72 MG/DL (7-18); BUN/CREATININE RATIO 43.6 (10.0-20.0); CALCIUM 8.4 MG/DL (8.5-10.1); CHLORIDE 117 MMOL/L (99-107); CREATININE 1.65 MG/DL (0.40-0.90); GLUCOSE 193 MG/DL (70-104); POTASSIUM 3.8 MMOL/L (3.5-5.1); SODIUM 154 MMOL/L (135-145); TOTAL CARBON DIOXIDE 26.2 MMOL/L (24-32); TOTAL PROTEIN 4.5 G/DL (6.4-8.2); eCRCL 28 ML/MIN; eGFR 30 ML/MIN
[2023-10-16 09:45] LABS: UA COLLECTION TYPE NON-SPECIFIED
[2023-10-16] MEDS: K and/or MAG REPLACEMENT MC SCH (10:04)
[2023-10-16 10:13] LABS: SQUAMOUS EPITHELIAL CELL,UR FEW /LPF (FEW)
[2023-10-16 10:14] LABS: BACTERIA,URINE FEW /HPF (Neg); WBC,URINE 0-4 /HPF (0-4)
[2023-10-16] MEDS: FENTANYL-0.9 % NACL/PF 100 ML IV PRN (10:42)
[2023-10-16] MEDS: meropenem inj 500 MG in normal saline 100ml IV soln 100 ML IV SCH (20:07)
[2023-10-16] MEDS: normal saline 1000ml 1,000 ML IVB ONE (23:25)
[2023-10-17] VITALS (39 sets, daily range): BP systolic 85–126; BP diastolic 38–59; PULSE 68–131; RESP 1–21; O2SAT 92–100
[2023-10-17] MEDS: albumin (Human) 5% 250ml 250 ML IV ONE ×3 (00:29→12:40)
[2023-10-17 02:39] LABS: BASOPHILS % (AUTO) 0 % (0-1); EOSINOPHILS % (AUTO) 0 % (0-6); HEMATOCRIT 24.5 % (35.0-45.0); HEMOGLOBIN 7.6 g/dl (12.0-16.0); LYMPHOCYTES # (AUTO) 0.7 X10'3 (1.1-4.8); LYMPHOCYTES % (AUTO) 2.2 % (21-51); MEAN CORPUSCULAR HEMOGLOBIN 25.4 PG (27.0-31.0); MEAN CORPUSCULAR HGB CONC 30.9 g/dL (33.0-36.5); MEAN CORPUSCULAR VOLUME 82.3 FL (78-98); MEAN PLATELET VOLUME 11.2 FL (7.4-10.4); MONOCYTES # (AUTO) 1.2 X10'3 (0-0.9); MONOCYTES % (AUTO) 3.5 % (2-12); NEUTROPHILS # (AUTO) 32.1 X10'3 (1.8-7.7); NEUTROPHILS % (AUTO) 94.3 % (42-75); PLATELET COUNT 94 X10'3 (140-440); RED BLOOD COUNT 2.98 X10'6 (4.20-5.60); RED CELL DISTRIBUTION WIDTH 14.7 % (11.5-14.5)
[2023-10-17 02:53] LABS: ALANINE AMINOTRANSFERASE 16 U/L (12-78); ALBUMIN/GLOBULIN RATIO 2.3 (1.1-1.5); ALKALINE PHOSPHATASE 31 IU/L (46-116); ANION GAP 10 (8-16); ASPARTATE AMINO TRANSFERASE 8 U/L (10-37); BILIRUBIN,TOTAL 0.8 MG/DL (0.1-1.0); BLOOD UREA NITROGEN 66 MG/DL (7-18); BUN/CREATININE RATIO 44.6 (10.0-20.0); CALCIUM 9.6 MG/DL (8.5-10.1); CHLORIDE 117 MMOL/L (99-107); CREATININE 1.48 MG/DL (0.40-0.90); GLUCOSE 249 MG/DL (70-104); SODIUM 154 MMOL/L (135-145); TOTAL CARBON DIOXIDE 26.7 MMOL/L (24-32); TOTAL PROTEIN 4.3 G/DL (6.4-8.2); eCRCL 31 ML/MIN; eGFR 34 ML/MIN
[2023-10-17 03:58] LABS: MAGNESIUM 1.7 MG/DL (1.5-2.4); PHOSPHORUS 2.9 MG/DL (2.3-4.5)
[2023-10-17 04:41] LABS: PLATELET ESTIMATE DECREASED; TOTAL CELLS COUNTED 100
[2023-10-17 04:42] LABS: BURR CELLS FEW; HYPOCHROMASIA 1+; SCHISTOCYTES FEW
[2023-10-17 04:43] LABS: LARGE PLATELETS FEW
[2023-10-17 04:44] LABS: HYPERSEGMENTED NEUTROPHILS FEW
[2023-10-17 04:55] LABS: ABG BASE EXCESS 0.2 mmol/L (-2.0-2.0); ABG HCO3 24.5 mmol/L (22.0-26.0); ABG OXYGEN SATURATION 97.5 % (94-97); ABG PCO2 (T) 37.1 mmHg (32.0-45.0); ABG PH (T) 7.435 (7.350-7.450); ALLEN'S TEST Modified; FCOHb 0.3 % (0.0-3.9); FHHb 2.5 % (0.0-5.0); FMetHb 0.3 % (0.0-1.5); FO2Hb 96.9 % (94-97); MODE VENT - SIMV; PATIENT TEMPERATURE 36.2; PEEP 5 cm H2O; RESPIRATORY RATE 12 b/min; TIDAL VOLUME 500 mL; TOTAL HEMOGLOBIN 8.7 G/dl (12.0-16.0)
[2023-10-17] MEDS ORDERED: sevoflurane 250ml liquid IH ONE (09:15)
[2023-10-17] MEDS ORDERED: albumin (Human) 5% 250ml 250 ML IV ONE ×2 (09:29→10:02)
[2023-10-17] MEDS ORDERED: fentaNYL/PF 50MCG/1 ML 2ML syringe ONE (09:29)
[2023-10-17] MEDS ORDERED: MIDAZolam 1 MG/ML 5ML VIAL ONE (09:29)
[2023-10-17] MEDS ORDERED: rocuronium 10mg/ml inj IV ONE (09:30)
[2023-10-17 12:36] LABS: BASOPHILS % (AUTO) 0 % (0-1); EOSINOPHILS % (AUTO) 0.1 % (0-6); HEMATOCRIT 26.1 % (35.0-45.0); LYMPHOCYTES # (AUTO) 0.7 X10'3 (1.1-4.8); MEAN CORPUSCULAR HEMOGLOBIN 25.6 PG (27.0-31.0); MEAN CORPUSCULAR HGB CONC 30.8 g/dL (33.0-36.5); MEAN CORPUSCULAR VOLUME 83.1 FL (78-98); MEAN PLATELET VOLUME 11.6 FL (7.4-10.4); MONOCYTES # (AUTO) 1.4 X10'3 (0-0.9); MONOCYTES % (AUTO) 3.9 % (2-12); NEUTROPHILS # (AUTO) 34.2 X10'3 (1.8-7.7); PLATELET COUNT 99 X10'3 (140-440); RED BLOOD COUNT 3.14 X10'6 (4.20-5.60); RED CELL DISTRIBUTION WIDTH 14.3 % (11.5-14.5)
[2023-10-17 12:39] LABS: WHITE BLOOD COUNT 36.4 X10'3 (4.5-11.0)
[2023-10-17 12:47] LABS: ALBUMIN 3.4 G/DL (3.4-5.0); ANION GAP 7 (8-16); BLOOD UREA NITROGEN 63 MG/DL (7-18); BUN/CREATININE RATIO 46.3 (10.0-20.0); CALCIUM 9.9 MG/DL (8.5-10.1); CHLORIDE 119 MMOL/L (99-107); CREATININE 1.36 MG/DL (0.40-0.90); GLUCOSE 151 MG/DL (70-104); POTASSIUM 4.5 MMOL/L (3.5-5.1); SODIUM 152 MMOL/L (135-145); TOTAL CARBON DIOXIDE 26.3 MMOL/L (24-32); eCRCL 34 ML/MIN; eGFR 38 ML/MIN
[2023-10-17] MEDS ORDERED: APIX5TAB3 PO (16:47)
[2023-10-17] MEDS ORDERED: DUPI300P SQ (16:47)
[2023-10-17] MEDS: metoprolol tartrate 1mg/ml inj IV SCH (23:36)
[2023-10-18] VITALS (40 sets, daily range): BP systolic 83–130; BP diastolic 38–72; PULSE 97–135; RESP 12–22; O2SAT 99–100
[2023-10-18 03:16] LABS: ALANINE AMINOTRANSFERASE 18 U/L (12-78); ALBUMIN 3.2 G/DL (3.4-5.0); ALBUMIN/GLOBULIN RATIO 2.5 (1.1-1.5); ALKALINE PHOSPHATASE 33 IU/L (46-116); ANION GAP 9 (8-16); ASPARTATE AMINO TRANSFERASE 13 U/L (10-37); BILIRUBIN,TOTAL 0.8 MG/DL (0.1-1.0); BLOOD UREA NITROGEN 60 MG/DL (7-18); BUN/CREATININE RATIO 45.5 (10.0-20.0); CALCIUM 10.1 MG/DL (8.5-10.1); CHLORIDE 118 MMOL/L (99-107); CREATININE 1.32 MG/DL (0.40-0.90); GLUCOSE 125 MG/DL (70-104); POTASSIUM 4.8 MMOL/L (3.5-5.1); SODIUM 153 MMOL/L (135-145); TOTAL CARBON DIOXIDE 26.1 MMOL/L (24-32); TOTAL PROTEIN 4.5 G/DL (6.4-8.2); eCRCL 35 ML/MIN; eGFR 39 ML/MIN
[2023-10-18 04:17] LABS: ABG BASE EXCESS -2.9 mmol/L (-2.0-2.0); ABG HCO3 21.2 mmol/L (22.0-26.0); ABG OXYGEN SATURATION 97.8 % (94-97); ABG PCO2 (T) 34.7 mmHg (32.0-45.0); ABG PH (T) 7.407 (7.350-7.450); ABG PO2 (T) 107.1 mmHg (75.0-100.0); ALLEN'S TEST Modified; FHHb 2.2 % (0.0-5.0); FMetHb 0.3 % (0.0-1.5); FO2Hb 97.5 % (94-97); MODE VENT - AC; PATIENT TEMPERATURE 37.3; PEEP 5 cm H2O; RESPIRATORY RATE 12 b/min; TIDAL VOLUME 500 mL; TOTAL HEMOGLOBIN 9.1 G/dl (12.0-16.0)
[2023-10-18 05:29] LABS: HEMOGLOBIN 8.2 g/dl (12.0-16.0); MEAN CORPUSCULAR HGB CONC 31.3 g/dL (33.0-36.5); MEAN PLATELET VOLUME 11.9 FL (7.4-10.4)
[2023-10-18 05:31] LABS: HEMATOCRIT 26.3 % (35.0-45.0); MEAN CORPUSCULAR HEMOGLOBIN 25.9 PG (27.0-31.0); MEAN CORPUSCULAR VOLUME 82.8 FL (78-98); PLATELET COUNT 101 X10'3 (140-440); RED BLOOD COUNT 3.18 X10'6 (4.20-5.60); RED CELL DISTRIBUTION WIDTH 14.7 % (11.5-14.5)
[2023-10-18 05:38] LABS: WHITE BLOOD COUNT 36.1 X10'3 (4.5-11.0)
[2023-10-18 06:05] LABS: MAGNESIUM 1.5 MG/DL (1.5-2.4); PHOSPHORUS 2.9 MG/DL (2.3-4.5)
[2023-10-18 07:28] LABS: MICROCYTOSIS 1+; PLATELET ESTIMATE DECREASED; TOTAL CELLS COUNTED 100
[2023-10-18 07:29] LABS: POIKILOCYTOSIS FEW
[2023-10-18] MEDS: dextrose 5%-1/4 normal saline 1,000 ML IV SCH (11:25)
[2023-10-18] MEDS: metoprolol tartrate 50mg tablet PO ONE (12:24)
[2023-10-18] MEDS: VANCOMYCIN 750MG IV in NS 250 ML IV SCH (13:33)
[2023-10-18] MEDS ORDERED: metoclopramide 5 mg/ml inj IV PRN (16:20)
[2023-10-18] MEDS: LORazepam 0.5 MG tablet CORPAK PRN (19:18)
[2023-10-18] MEDS: metoprolol tartrate 25mg tablet JT SCH (19:19)
[2023-10-18] MEDS ORDERED: metoprolol tartrate 25mg tablet JT SCH (20:00)
[2023-10-18] MEDS: pneumococcal 23-VAL P-sac vacc 25 mcg/0.5ml vial IMVAC ONE (20:13)
[2023-10-18 23:44] LABS: ALANINE AMINOTRANSFERASE 23 U/L (12-78); ALBUMIN 2.5 G/DL (3.4-5.0); ALBUMIN/GLOBULIN RATIO 1.5 (1.1-1.5); ALKALINE PHOSPHATASE 48 IU/L (46-116); ANION GAP 8 (8-16); ASPARTATE AMINO TRANSFERASE 12 U/L (10-37); BILIRUBIN,TOTAL 0.8 MG/DL (0.1-1.0); BLOOD UREA NITROGEN 53 MG/DL (7-18); BUN/CREATININE RATIO 42.1 (10.0-20.0); CALCIUM 9.6 MG/DL (8.5-10.1); CHLORIDE 115 MMOL/L (99-107); CREATININE 1.26 MG/DL (0.40-0.90); GLUCOSE 296 MG/DL (70-104); POTASSIUM 4.3 MMOL/L (3.5-5.1); SODIUM 147 MMOL/L (135-145); TOTAL CARBON DIOXIDE 24.1 MMOL/L (24-32); TOTAL PROTEIN 4.2 G/DL (6.4-8.2); eCRCL 37 ML/MIN; eGFR 42 ML/MIN
[2023-10-19] VITALS (43 sets, daily range): BP systolic 79–135; BP diastolic 41–76; PULSE 86–146; RESP 12–19; O2SAT 94–100
[2023-10-19 02:14] LABS: HEMATOCRIT 26.7 % (35.0-45.0); HEMOGLOBIN 8.3 g/dl (12.0-16.0); LYMPHOCYTES % (AUTO) 3.8 % (21-51); MEAN CORPUSCULAR HEMOGLOBIN 25.7 PG (27.0-31.0); MEAN CORPUSCULAR VOLUME 83.1 FL (78-98); NEUTROPHILS % (AUTO) 88.8 % (42-75); PLATELET COUNT 103 X10'3 (140-440); RED BLOOD COUNT 3.22 X10'6 (4.20-5.60); RED CELL DISTRIBUTION WIDTH 14.7 % (11.5-14.5)
[2023-10-19 02:15] LABS: BASOPHILS % (AUTO) 0.1 % (0-1); EOSINOPHILS # (AUTO) 0.4 X10'3 (0-0.9); EOSINOPHILS % (AUTO) 1.3 % (0-6); LYMPHOCYTES # (AUTO) 1.2 X10'3 (1.1-4.8); MONOCYTES # (AUTO) 1.9 X10'3 (0-0.9); NEUTROPHILS # (AUTO) 28.1 X10'3 (1.8-7.7)
[2023-10-19 02:17] LABS: ALBUMIN 2.5 G/DL (3.4-5.0); ANION GAP 10 (8-16); BLOOD UREA NITROGEN 57 MG/DL (7-18); BUN/CREATININE RATIO 44.9 (10.0-20.0); CHLORIDE 115 MMOL/L (99-107); CREATININE 1.27 MG/DL (0.40-0.90); GLUCOSE 321 MG/DL (70-104); POTASSIUM 4.3 MMOL/L (3.5-5.1); SODIUM 149 MMOL/L (135-145); TOTAL CARBON DIOXIDE 23.6 MMOL/L (24-32); eCRCL 36 ML/MIN; eGFR 41 ML/MIN
[2023-10-19 02:25] LABS: AMYLASE 13 U/L (25-115)
[2023-10-19 02:55] LABS: WHITE BLOOD COUNT 31.7 X10'3 (4.5-11.0)
[2023-10-19 03:27] LABS: BFSOURCE RIGHT PLEURAL FLD
[2023-10-19 03:35] LABS: BFSOURCE LEFT PLEURAL FLD
[2023-10-19 04:10] LABS: AMYLASE,BODY FLUID 5 U/L; AMYLASE,BODY FLUID 9 U/L; LDH,BODY FLUID 346 U/L; LDH,BODY FLUID 406 U/L
[2023-10-19 04:12] LABS: TOTAL PROTEIN,BODY FLUID < 2.0 G/DL
[2023-10-19 04:20] LABS: ABG BASE EXCESS -3.1 mmol/L (-2.0-2.0); ABG HCO3 20.2 mmol/L (22.0-26.0); ABG OXYGEN SATURATION 98.1 % (94-97); ABG PCO2 (T) 29.5 mmHg (32.0-45.0); ABG PH (T) 7.454 (7.350-7.450); ABG PO2 (T) 110.1 mmHg (75.0-100.0); ALLEN'S TEST Modified; FCOHb 0.3 % (0.0-3.9); FHHb 1.9 % (0.0-5.0); FMetHb 0.3 % (0.0-1.5); FO2Hb 97.5 % (94-97); MODE VENT - AC; PATIENT TEMPERATURE 36.9; PEEP 5 cm H2O; RESPIRATORY RATE 12 b/min; TIDAL VOLUME 500 mL; TOTAL HEMOGLOBIN 9.2 G/dl (12.0-16.0)
[2023-10-19 06:02] LABS: BFAPPEAR CLEAR; BFSOURCE LEFT PLEURAL FLD
[2023-10-19 06:03] LABS: BFCOLOR YELLOW
[2023-10-19 06:04] LABS: BF RBC COUNT 334 /CU MM; BF WBC COUNT 507 /CU MM (0-1000); BFVOLUME 8 ML; LYMPHOCYTES,BODY FLUID 23 %; NEUTROPHILS,BODY FLUID 77 %
[2023-10-19 06:05] LABS: BFAPPEAR CLEAR; BFSOURCE RIGHT PLEURAL FLD
[2023-10-19 06:06] LABS: BFCOLOR YELLOW
[2023-10-19 06:07] LABS: BF RBC COUNT 63 /CU MM; BF WBC COUNT 29 /CU MM (0-1000); BFVOLUME 1 ML; LYMPHOCYTES,BODY FLUID 100 %
[2023-10-19 07:48] LABS: PLATELET ESTIMATE DECREASED; SMUDGE CELLS FEW; TOTAL CELLS COUNTED 100
[2023-10-19 07:49] LABS: BURR CELLS 2+; POLYCHROMASIA FEW
[2023-10-19] MEDS: metoprolol tartrate 50mg tablet PO ONE (15:54)
[2023-10-19] MEDS: metoprolol tartrate 50mg tablet JT SCH (19:44)
[2023-10-19] MEDS ORDERED: metoprolol tartrate 50mg tablet PO SCH (20:00)
[2023-10-19] MEDS ORDERED: metoprolol tartrate 50mg tablet PO ONE (20:00)
[2023-10-19] MEDS ORDERED: metoprolol tartrate 25mg tablet JT SCH (21:00)
[2023-10-20] VITALS (46 sets, daily range): BP systolic 79–154; BP diastolic 38–73; PULSE 46–133; RESP 13–25; O2SAT 98–100
[2023-10-20 02:54] LABS: ABG BASE EXCESS -2.3 mmol/L (-2.0-2.0); ABG HCO3 21.2 mmol/L (22.0-26.0); ABG OXYGEN SATURATION 96.8 % (94-97); ABG PCO2 (T) 32.2 mmHg (32.0-45.0); ABG PH (T) 7.439 (7.350-7.450); ALLEN'S TEST Modified; FCOHb 0.3 % (0.0-3.9); FHHb 3.2 % (0.0-5.0); FMetHb 0.3 % (0.0-1.5); FO2Hb 96.2 % (94-97); MODE VENT - AC; PATIENT TEMPERATURE 37.4; PEEP 5 cm H2O; RESPIRATORY RATE 12 b/min; TIDAL VOLUME 500 mL; TOTAL HEMOGLOBIN 9.3 G/dl (12.0-16.0)
[2023-10-20 03:00] LABS: BASOPHILS % (AUTO) 0.1 % (0-1); EOSINOPHILS # (AUTO) 0.2 X10'3 (0-0.9); EOSINOPHILS % (AUTO) 0.5 % (0-6); HEMATOCRIT 25.8 % (35.0-45.0); HEMOGLOBIN 8.1 g/dl (12.0-16.0); LYMPHOCYTES # (AUTO) 1.3 X10'3 (1.1-4.8); LYMPHOCYTES % (AUTO) 4.1 % (21-51); MEAN CORPUSCULAR HEMOGLOBIN 25.8 PG (27.0-31.0); MEAN CORPUSCULAR HGB CONC 31.3 g/dL (33.0-36.5); MEAN CORPUSCULAR VOLUME 82.7 FL (78-98); MEAN PLATELET VOLUME 12.2 FL (7.4-10.4); MONOCYTES # (AUTO) 2.7 X10'3 (0-0.9); MONOCYTES % (AUTO) 8.5 % (2-12); NEUTROPHILS # (AUTO) 27.7 X10'3 (1.8-7.7); NEUTROPHILS % (AUTO) 86.8 % (42-75); PLATELET COUNT 106 X10'3 (140-440); RED BLOOD COUNT 3.12 X10'6 (4.20-5.60); RED CELL DISTRIBUTION WIDTH 14.7 % (11.5-14.5)
[2023-10-20 04:01] LABS: WHITE BLOOD COUNT 31.9 X10'3 (4.5-11.0)
[2023-10-20 07:46] LABS: ALANINE AMINOTRANSFERASE 42 U/L (12-78); ALKALINE PHOSPHATASE 114 IU/L (46-116); ANION GAP 6 (8-16); ASPARTATE AMINO TRANSFERASE 33 U/L (10-37); BILIRUBIN,TOTAL 0.6 MG/DL (0.1-1.0); BLOOD UREA NITROGEN 52 MG/DL (7-18); CALCIUM 9.5 MG/DL (8.5-10.1); CHLORIDE 113 MMOL/L (99-107); CREATININE 1.13 MG/DL (0.40-0.90); GLUCOSE 307 MG/DL (70-104); POTASSIUM 3.6 MMOL/L (3.5-5.1); SODIUM 143 MMOL/L (135-145); eCRCL 41 ML/MIN; eGFR 47 ML/MIN
[2023-10-20] MEDS ORDERED: metoprolol tartrate 50mg tablet PO SCH (08:00)
[2023-10-20] MEDS: diltiazem 30mg tablet PO SCH (08:18)
[2023-10-20 08:39] LABS: PLATELET ESTIMATE DECREASED; SMUDGE CELLS FEW; TOTAL CELLS COUNTED 100
[2023-10-20 08:40] LABS: BURR CELLS FEW; ELLIPTOCYTES FEW; SCHISTOCYTES FEW
[2023-10-20] MEDS: DOPamine 400mg/D5W 250ml 250 ML IV SCH (09:54)
[2023-10-20] MEDS: insulin regular, human U-100 3ml vial - multi-dose SQ SCH (10:10)
[2023-10-20] MEDS: 1/4 NORMAL SALINE IV SCH (11:17)
[2023-10-20] MEDS: POTASSIUM CL IV SCH (11:17)
[2023-10-20] MEDS: DEXTROSE 5% IV SCH (11:17)
[2023-10-20] MEDS: meropenem inj 500 MG in normal saline 100ml IV soln 100 ML IV SCH (14:23)
[2023-10-20] MEDS: amiodarone/D5 360MG/200ML BAG 200 ML IV SCH (20:17)
[2023-10-21] VITALS (44 sets, daily range): BP systolic 102–144; BP diastolic 16–64; PULSE 90–142; RESP 15–31; O2SAT 93–100
[2023-10-21 01:26] LABS: BASOPHILS % (AUTO) 0.2 % (0-1); EOSINOPHILS # (AUTO) 0.1 X10'3 (0-0.9); EOSINOPHILS % (AUTO) 0.6 % (0-6); HEMATOCRIT 25.8 % (35.0-45.0); HEMOGLOBIN 8.2 g/dl (12.0-16.0); LYMPHOCYTES # (AUTO) 1.1 X10'3 (1.1-4.8); LYMPHOCYTES % (AUTO) 4.7 % (21-51); MEAN CORPUSCULAR HEMOGLOBIN 25.8 PG (27.0-31.0); MEAN CORPUSCULAR HGB CONC 31.6 g/dL (33.0-36.5); MEAN CORPUSCULAR VOLUME 81.5 FL (78-98); MEAN PLATELET VOLUME 11.5 FL (7.4-10.4); MONOCYTES # (AUTO) 1.9 X10'3 (0-0.9); MONOCYTES % (AUTO) 8.3 % (2-12); NEUTROPHILS # (AUTO) 19.6 X10'3 (1.8-7.7); NEUTROPHILS % (AUTO) 86.2 % (42-75); PLATELET COUNT 117 X10'3 (140-440); RED BLOOD COUNT 3.17 X10'6 (4.20-5.60); RED CELL DISTRIBUTION WIDTH 14.4 % (11.5-14.5); WHITE BLOOD COUNT 22.8 X10'3 (4.5-11.0)
[2023-10-21 01:51] LABS: ALANINE AMINOTRANSFERASE 80 U/L (12-78); ALBUMIN 1.7 G/DL (3.4-5.0); ALBUMIN/GLOBULIN RATIO 0.7 (1.1-1.5); ALKALINE PHOSPHATASE 182 IU/L (46-116); ANION GAP 7 (8-16); ASPARTATE AMINO TRANSFERASE 71 U/L (10-37); BILIRUBIN,TOTAL 0.4 MG/DL (0.1-1.0); BLOOD UREA NITROGEN 47 MG/DL (7-18); BUN/CREATININE RATIO 45.2 (10.0-20.0); CALCIUM 9.3 MG/DL (8.5-10.1); CHLORIDE 109 MMOL/L (99-107); CREATININE 1.04 MG/DL (0.40-0.90); GLUCOSE 257 MG/DL (70-104); SODIUM 140 MMOL/L (135-145); TOTAL CARBON DIOXIDE 24.4 MMOL/L (24-32); eCRCL 44 ML/MIN; eGFR 52 ML/MIN
[2023-10-21 02:57] LABS: ABG BASE EXCESS -0.9 mmol/L (-2.0-2.0); ABG HCO3 21.4 mmol/L (22.0-26.0); ABG OXYGEN SATURATION 95.7 % (94-97); ABG PCO2 (T) 27.7 mmHg (32.0-45.0); ABG PH (T) 7.507 (7.350-7.450); ABG PO2 (T) 74.5 mmHg (75.0-100.0); ALLEN'S TEST Modified; FCOHb 0.3 % (0.0-3.9); FHHb 4.3 % (0.0-5.0); FMetHb 0.3 % (0.0-1.5); FO2Hb 95.1 % (94-97); MODE VENT - PRVC; PATIENT TEMPERATURE 37.6; PEEP 5 cm H2O; RESPIRATORY RATE 12 b/min; TIDAL VOLUME 500 mL; TOTAL HEMOGLOBIN 9.3 G/dl (12.0-16.0)
[2023-10-21] MEDS: 1/4 NORMAL SALINE IV SCH (07:40)
[2023-10-21] MEDS: POTASSIUM CL IV SCH (07:40)
[2023-10-21] MEDS: DEXTROSE 5% IV SCH (07:40)
[2023-10-21 07:53] LABS: MAGNESIUM 1.5 MG/DL (1.5-2.4); PHOSPHORUS 2.8 MG/DL (2.3-4.5)
[2023-10-21] MEDS: amiodarone 150mg/dext, iso-os 100 ML IV ONE (11:22)
[2023-10-21] MEDS: magnesium 4gm in 100ml NS 100 ML IV ONE (11:22)
[2023-10-21] MEDS ORDERED: VANCOMYCIN LEVEL IV ONE (12:30)
[2023-10-21] MEDS: enoxaparin 60mg/0.6ml syringe SUBCUT ONE (13:28)
[2023-10-21 16:18] LABS: ALANINE AMINOTRANSFERASE 130 U/L (12-78); ALBUMIN 1.7 G/DL (3.4-5.0); ALBUMIN/GLOBULIN RATIO 0.7 (1.1-1.5); ALKALINE PHOSPHATASE 228 IU/L (46-116); ANION GAP 8 (8-16); ASPARTATE AMINO TRANSFERASE 119 U/L (10-37); BILIRUBIN,TOTAL 0.4 MG/DL (0.1-1.0); BLOOD UREA NITROGEN 41 MG/DL (7-18); BUN/CREATININE RATIO 40.2 (10.0-20.0); CALCIUM 9.3 MG/DL (8.5-10.1); CHLORIDE 107 MMOL/L (99-107); CREATININE 1.02 MG/DL (0.40-0.90); GLUCOSE 124 MG/DL (70-104); POTASSIUM 3.9 MMOL/L (3.5-5.1); SODIUM 138 MMOL/L (135-145); TOTAL CARBON DIOXIDE 22.7 MMOL/L (24-32); eCRCL 45 ML/MIN; eGFR 53 ML/MIN
[2023-10-21 17:28] LABS: MAGNESIUM 2.6 MG/DL (1.5-2.4)
[2023-10-21] MEDS: metoprolol tartrate 12.5mg (1/2 tablet) PO ONE (18:38)
[2023-10-21] MEDS: enoxaparin 60mg/0.6ml syringe SUBCUT SCH (19:40)
[2023-10-21] MEDS: metoprolol tartrate 12.5mg (1/2 tablet) JT SCH (19:40)
[2023-10-21] MEDS: digoxin 250mcg/ml 2ml ampule IV ONE (21:49)
[2023-10-22] VITALS (45 sets, daily range): BP systolic 77–157; BP diastolic 36–70; PULSE 80–116; RESP 13–33; O2SAT 9–100
[2023-10-22 00:19] LABS: BASOPHILS % (AUTO) 0.1 % (0-1); EOSINOPHILS # (AUTO) 0.1 X10'3 (0-0.9); EOSINOPHILS % (AUTO) 0.3 % (0-6); HEMATOCRIT 26.7 % (35.0-45.0); HEMOGLOBIN 8.5 g/dl (12.0-16.0); LYMPHOCYTES # (AUTO) 1.3 X10'3 (1.1-4.8); LYMPHOCYTES % (AUTO) 4.3 % (21-51); MEAN CORPUSCULAR HEMOGLOBIN 25.4 PG (27.0-31.0); MEAN CORPUSCULAR HGB CONC 31.7 g/dL (33.0-36.5); MEAN CORPUSCULAR VOLUME 80.3 FL (78-98); MEAN PLATELET VOLUME 11.6 FL (7.4-10.4); MONOCYTES # (AUTO) 1.8 X10'3 (0-0.9); MONOCYTES % (AUTO) 5.6 % (2-12); NEUTROPHILS % (AUTO) 89.7 % (42-75); PLATELET COUNT 133 X10'3 (140-440); RED BLOOD COUNT 3.33 X10'6 (4.20-5.60); RED CELL DISTRIBUTION WIDTH 14.4 % (11.5-14.5)
[2023-10-22 00:26] LABS: WHITE BLOOD COUNT 31.2 X10'3 (4.5-11.0)
[2023-10-22 00:34] LABS: ALANINE AMINOTRANSFERASE 264 U/L (12-78); ALBUMIN 1.7 G/DL (3.4-5.0); ALBUMIN/GLOBULIN RATIO 0.7 (1.1-1.5); ALKALINE PHOSPHATASE 351 IU/L (46-116); ANION GAP 7 (8-16); ASPARTATE AMINO TRANSFERASE 245 U/L (10-37); BILIRUBIN,TOTAL 0.4 MG/DL (0.1-1.0); BLOOD UREA NITROGEN 43 MG/DL (7-18); BUN/CREATININE RATIO 41.7 (10.0-20.0); CALCIUM 9.5 MG/DL (8.5-10.1); CHLORIDE 108 MMOL/L (99-107); CREATININE 1.03 MG/DL (0.40-0.90); GLUCOSE 148 MG/DL (70-104); POTASSIUM 4.1 MMOL/L (3.5-5.1); SODIUM 139 MMOL/L (135-145); TOTAL CARBON DIOXIDE 23.6 MMOL/L (24-32); TOTAL PROTEIN 4.2 G/DL (6.4-8.2); eCRCL 45 ML/MIN; eGFR 52 ML/MIN
[2023-10-22 00:43] LABS: MAGNESIUM 2.3 MG/DL (1.5-2.4); PHOSPHORUS 2.4 MG/DL (2.3-4.5)
[2023-10-22 00:49] LABS: BURR CELLS 1+; ELLIPTOCYTES FEW; HYPERSEGMENTED NEUTROPHILS FEW; LARGE PLATELETS FEW; PLATELET ESTIMATE DECREASED; SCHISTOCYTES FEW; SMUDGE CELLS FEW; TOTAL CELLS COUNTED 100
[2023-10-22 02:58] LABS: ABG PCO2 (T) 25.3 mmHg (32.0-45.0); ABG PH (T) 7.549 (7.350-7.450); ABG PO2 (T) 75.1 mmHg (75.0-100.0); ALLEN'S TEST Modified; MODE VENT - PRVC; PATIENT TEMPERATURE 37.4; PEEP 5 cm H2O; RESPIRATORY RATE 12 b/min; TIDAL VOLUME 500 mL
[2023-10-22 02:59] LABS: ABG HCO3 21.5 mmol/L (22.0-26.0); ABG OXYGEN SATURATION 95.6 % (94-97); FCOHb 0.3 % (0.0-3.9); FHHb 4.4 % (0.0-5.0); FMetHb 0.3 % (0.0-1.5); TOTAL HEMOGLOBIN 9.5 G/dl (12.0-16.0)
[2023-10-22] MEDS: digoxin 250mcg/ml 2ml ampule IV SCH (04:14)
[2023-10-22] MEDS: digoxin 250mcg/ml 2ml ampule IV ONE ×2 (10:21→10:49)
[2023-10-22] MEDS: HYDROcodone/acetaminophen 7.5MG/325MG per 15ml UD CUP CORPAK PRN (17:43)
[2023-10-22] MEDS: rifaximin 550mg tablet CORPAK SCH (20:25)
[2023-10-22] MEDS: dexmedetomidin/NS 400mcg/100ml 100 ML IV SCH (20:48)
[2023-10-23] VITALS (39 sets, daily range): BP systolic 82–148; BP diastolic 41–66; PULSE 76–108; RESP 11–46; O2SAT 93–100
[2023-10-23 02:00] LABS: BASOPHILS % (AUTO) 0.1 % (0-1); EOSINOPHILS # (AUTO) 0.1 X10'3 (0-0.9); EOSINOPHILS % (AUTO) 0.3 % (0-6); HEMATOCRIT 23.8 % (35.0-45.0); HEMOGLOBIN 7.6 g/dl (12.0-16.0); LYMPHOCYTES # (AUTO) 0.5 X10'3 (1.1-4.8); LYMPHOCYTES % (AUTO) 2.2 % (21-51); MEAN CORPUSCULAR HEMOGLOBIN 25.8 PG (27.0-31.0); MEAN CORPUSCULAR HGB CONC 32.2 g/dL (33.0-36.5); MEAN CORPUSCULAR VOLUME 80.1 FL (78-98); MEAN PLATELET VOLUME 11.8 FL (7.4-10.4); MONOCYTES # (AUTO) 0.9 X10'3 (0-0.9); NEUTROPHILS # (AUTO) 21.7 X10'3 (1.8-7.7); NEUTROPHILS % (AUTO) 93.4 % (42-75); PLATELET COUNT 137 X10'3 (140-440); RED BLOOD COUNT 2.97 X10'6 (4.20-5.60); RED CELL DISTRIBUTION WIDTH 14.8 % (11.5-14.5); WHITE BLOOD COUNT 23.2 X10'3 (4.5-11.0)
[2023-10-23 02:16] LABS: ALANINE AMINOTRANSFERASE 157 U/L (12-78); ALBUMIN 1.3 G/DL (3.4-5.0); ALBUMIN/GLOBULIN RATIO 0.5 (1.1-1.5); ALKALINE PHOSPHATASE 289 IU/L (46-116); ANION GAP 4 (8-16); ASPARTATE AMINO TRANSFERASE 55 U/L (10-37); BILIRUBIN,TOTAL 0.3 MG/DL (0.1-1.0); BLOOD UREA NITROGEN 39 MG/DL (7-18); BUN/CREATININE RATIO 33.3 (10.0-20.0); CALCIUM 8.8 MG/DL (8.5-10.1); CHLORIDE 108 MMOL/L (99-107); CREATININE 1.17 MG/DL (0.40-0.90); GLUCOSE 147 MG/DL (70-104); POTASSIUM 4.3 MMOL/L (3.5-5.1); SODIUM 137 MMOL/L (135-145); TOTAL CARBON DIOXIDE 25.5 MMOL/L (24-32); TOTAL PROTEIN 3.9 G/DL (6.4-8.2); eCRCL 39 ML/MIN; eGFR 45 ML/MIN
[2023-10-23 02:29] LABS: MAGNESIUM 1.9 MG/DL (1.5-2.4); PHOSPHORUS 3.3 MG/DL (2.3-4.5)
[2023-10-23 02:33] LABS: DIGOXIN 2.8 NG/ML (0.9-1.9)
[2023-10-23 04:13] LABS: ABG BASE EXCESS -3.7 mmol/L (-2.0-2.0); ABG HCO3 19.4 mmol/L (22.0-26.0); ABG OXYGEN SATURATION 94.4 % (94-97); ABG PCO2 (T) 27.6 mmHg (32.0-45.0); ABG PH (T) 7.464 (7.350-7.450); ALLEN'S TEST Modified; FCOHb 0.2 % (0.0-3.9); FHHb 5.6 % (0.0-5.0); FMetHb 0.3 % (0.0-1.5); FO2Hb 93.9 % (94-97); MODE PRVC; PATIENT TEMPERATURE 37.2; PEEP 5 cm H2O; RESPIRATORY RATE 12 b/min; TIDAL VOLUME 500 mL; TOTAL HEMOGLOBIN 8.2 G/dl (12.0-16.0)
[2023-10-23] MEDS: HYDROcodone/acetaminophen 7.5MG/325MG per 15ml UD CUP CORPAK PRN (19:28)
[2023-10-23] MEDS: LIPASE/PROTEASE/AMYLASE 4,200 unit CAPSULE.DR PO SCH (20:43)
[2023-10-24] VITALS (34 sets, daily range): BP systolic 106–151; BP diastolic 43–68; PULSE 82–107; RESP 18–28; TEMP 97.2; O2SAT 95–100
[2023-10-24 06:11] LABS: ALANINE AMINOTRANSFERASE 183 U/L (12-78); ALBUMIN 1.2 G/DL (3.4-5.0); ALBUMIN/GLOBULIN RATIO 0.4 (1.1-1.5); ALKALINE PHOSPHATASE 401 IU/L (46-116); ANION GAP 7 (8-16); ASPARTATE AMINO TRANSFERASE 108 U/L (10-37); BILIRUBIN,TOTAL 0.3 MG/DL (0.1-1.0); BLOOD UREA NITROGEN 42 MG/DL (7-18); BUN/CREATININE RATIO 33.9 (10.0-20.0); CALCIUM 9.6 MG/DL (8.5-10.1); CHLORIDE 106 MMOL/L (99-107); CREATININE 1.24 MG/DL (0.40-0.90); GLUCOSE 84 MG/DL (70-104); MAGNESIUM 1.7 MG/DL (1.5-2.4); PHOSPHORUS 3.7 MG/DL (2.3-4.5); POTASSIUM 4.2 MMOL/L (3.5-5.1); SODIUM 138 MMOL/L (135-145); TOTAL CARBON DIOXIDE 24.6 MMOL/L (24-32); TOTAL PROTEIN 4.1 G/DL (6.4-8.2); eCRCL 37 ML/MIN; eGFR 42 ML/MIN
[2023-10-24 06:26] LABS: HEMOGLOBIN 8.7 g/dl (12.0-16.0); MEAN CORPUSCULAR HGB CONC 31.7 g/dL (33.0-36.5); PLATELET COUNT 165 X10'3 (140-440)
[2023-10-24 06:28] LABS: BASOPHILS % (AUTO) 0.2 % (0-1); EOSINOPHILS # (AUTO) 0.1 X10'3 (0-0.9); EOSINOPHILS % (AUTO) 0.7 % (0-6); HEMATOCRIT 27.4 % (35.0-45.0); LYMPHOCYTES # (AUTO) 0.8 X10'3 (1.1-4.8); LYMPHOCYTES % (AUTO) 4.3 % (21-51); MEAN CORPUSCULAR HEMOGLOBIN 25.9 PG (27.0-31.0); MEAN CORPUSCULAR VOLUME 81.6 FL (78-98); MEAN PLATELET VOLUME 12.4 FL (7.4-10.4); MONOCYTES # (AUTO) 0.9 X10'3 (0-0.9); MONOCYTES % (AUTO) 4.6 % (2-12); NEUTROPHILS # (AUTO) 16.6 X10'3 (1.8-7.7); NEUTROPHILS % (AUTO) 90.2 % (42-75); RED BLOOD COUNT 3.35 X10'6 (4.20-5.60); RED CELL DISTRIBUTION WIDTH 15.1 % (11.5-14.5); WHITE BLOOD COUNT 18.4 X10'3 (4.5-11.0)
[2023-10-24 07:13] LABS: HYPERSEGMENTED NEUTROPHILS FEW; LARGE PLATELETS FEW; PLATELET ESTIMATE NORMAL; SMUDGE CELLS FEW; TOTAL CELLS COUNTED 100
[2023-10-24 07:14] LABS: BURR CELLS 2+; HYPOCHROMASIA 1+; POLYCHROMASIA 1+
[2023-10-24 07:15] LABS: ACANTHOCYTES 1+; ANISOCYTOSIS FEW; SCHISTOCYTES FEW
[2023-10-24] MEDS ORDERED: amiodarone 200mg tablet PO SCH (08:00)
[2023-10-24] MEDS: amiodarone 200mg tablet CORPAK SCH (08:21)
[2023-10-25] VITALS (18 sets, daily range): BP systolic 116–150; BP diastolic 49–84; PULSE 92–116; RESP 18–33; TEMP 97–98.8; O2SAT 92–99
[2023-10-25 06:23] LABS: BASOPHILS % (AUTO) 0.1 % (0-1); LYMPHOCYTES # (AUTO) 0.7 X10'3 (1.1-4.8); LYMPHOCYTES % (AUTO) 3.3 % (21-51)
[2023-10-25 06:26] LABS: EOSINOPHILS % (AUTO) 0.1 % (0-6); HEMATOCRIT 27.9 % (35.0-45.0); MEAN CORPUSCULAR HEMOGLOBIN 26.1 PG (27.0-31.0); MEAN CORPUSCULAR HGB CONC 32.3 g/dL (33.0-36.5); MEAN CORPUSCULAR VOLUME 80.7 FL (78-98); MEAN PLATELET VOLUME 12.6 FL (7.4-10.4); MONOCYTES % (AUTO) 4.6 % (2-12); NEUTROPHILS % (AUTO) 91.9 % (42-75); PLATELET COUNT 225 X10'3 (140-440); RED BLOOD COUNT 3.46 X10'6 (4.20-5.60); RED CELL DISTRIBUTION WIDTH 14.9 % (11.5-14.5); WHITE BLOOD COUNT 20.7 X10'3 (4.5-11.0)
[2023-10-25 06:31] LABS: MAGNESIUM 1.6 MG/DL (1.5-2.4); PHOSPHORUS 3.1 MG/DL (2.3-4.5)
[2023-10-25] MEDS: iron sucrose complex injection 300 MG in normal saline 250ml IV soln 250 ML IV SCH (10:41)
[2023-10-26] VITALS (18 sets, daily range): BP systolic 107–156; BP diastolic 55–65; PULSE 103–120; RESP 16–30; TEMP 97–98.8; O2SAT 93–100
[2023-10-26 06:55] LABS: BASOPHILS % (AUTO) 0.2 % (0-1); EOSINOPHILS % (AUTO) 0 % (0-6); HEMATOCRIT 27.7 % (35.0-45.0); HEMOGLOBIN 8.7 g/dl (12.0-16.0); LYMPHOCYTES # (AUTO) 0.7 X10'3 (1.1-4.8); LYMPHOCYTES % (AUTO) 3.2 % (21-51); MEAN CORPUSCULAR HEMOGLOBIN 25.1 PG (27.0-31.0); MEAN CORPUSCULAR HGB CONC 31.4 g/dL (33.0-36.5); MEAN CORPUSCULAR VOLUME 80.1 FL (78-98); MEAN PLATELET VOLUME 12.5 FL (7.4-10.4); NEUTROPHILS # (AUTO) 19.4 X10'3 (1.8-7.7); NEUTROPHILS % (AUTO) 91.6 % (42-75); PLATELET COUNT 272 X10'3 (140-440); RED BLOOD COUNT 3.46 X10'6 (4.20-5.60); RED CELL DISTRIBUTION WIDTH 15.1 % (11.5-14.5); WHITE BLOOD COUNT 21.2 X10'3 (4.5-11.0)
[2023-10-26 07:23] LABS: ALANINE AMINOTRANSFERASE 119 U/L (12-78); ALBUMIN 1.1 G/DL (3.4-5.0); ALBUMIN/GLOBULIN RATIO 0.3 (1.1-1.5); ALKALINE PHOSPHATASE 429 IU/L (46-116); ANION GAP 7 (8-16); ASPARTATE AMINO TRANSFERASE 33 U/L (10-37); BILIRUBIN,TOTAL 0.3 MG/DL (0.1-1.0); BLOOD UREA NITROGEN 45 MG/DL (7-18); BUN/CREATININE RATIO 35.2 (10.0-20.0); CALCIUM 9.6 MG/DL (8.5-10.1); CHLORIDE 105 MMOL/L (99-107); CREATININE 1.28 MG/DL (0.40-0.90); GLUCOSE 141 MG/DL (70-104); POTASSIUM 4.6 MMOL/L (3.5-5.1); SODIUM 134 MMOL/L (135-145); TOTAL CARBON DIOXIDE 22.1 MMOL/L (24-32); TOTAL PROTEIN 4.4 G/DL (6.4-8.2); eCRCL 36 ML/MIN; eGFR 41 ML/MIN
[2023-10-26] MEDS ORDERED: LORazepam 0.5 MG tablet PO PRN (08:45)
[2023-10-26] MEDS ORDERED: acetaminophen 325mg tablet PO PRN (08:45)
[2023-10-26] MEDS ORDERED: mag hydrox/Alum hydrox/simeth 30ml oral suspension PO PRN (08:45)
[2023-10-26] MEDS ORDERED: docusate sodium 100mg/10ml UD cup PO PRN (08:45)
[2023-10-26] MEDS ORDERED: HYDROcodone/acetaminophen 7.5MG/325MG per 15ml UD CUP PO PRN ×2 (08:45)
[2023-10-26] MEDS ORDERED: magnesium hydroxide 30ml (MOM) UD suspension PO PRN (08:45)
[2023-10-26] MEDS ORDERED: DEXTROSE 15 GM of carb/4 tabs (each vial/BOTTLE has 4 tablets) PO PRN ×2 (09:01)
[2023-10-26] MEDS: amiodarone 200mg tablet PO SCH (09:45)
[2023-10-26] MEDS: rifaximin 550mg tablet PO SCH (09:45)
[2023-10-26] MEDS: atorvastatin 10mg tablet PO SCH (09:56)
[2023-10-26] MEDS: metoprolol tartrate 12.5mg (1/2 tablet) PO SCH (09:59)
[2023-10-26] MEDS: potassium CL 20mEq in D5-1/2NS 1,000 ML IV SCH (17:35)
[2023-10-26] MEDS ORDERED: metoprolol tartrate 12.5mg (1/2 tablet) PO SCH (20:00)
[2023-10-26] MEDS ORDERED: rifaximin 550mg tablet PO SCH (20:00)
[2023-10-26] MEDS ORDERED: amiodarone 200mg tablet PO SCH (20:00)
[2023-10-26] MEDS: traZODone 50mg tablet PO SCH (20:18)
[2023-10-27] VITALS (13 sets, daily range): BP systolic 122–164; BP diastolic 47–67; PULSE 86–113; RESP 16–25; TEMP 98–99.9; O2SAT 93–98
[2023-10-27 07:41] LABS: BASOPHILS % (AUTO) 0.3 % (0-1); EOSINOPHILS % (AUTO) 0.3 % (0-6); HEMATOCRIT 26.3 % (35.0-45.0); HEMOGLOBIN 8.2 g/dl (12.0-16.0); LYMPHOCYTES % (AUTO) 6.6 % (21-51); MEAN CORPUSCULAR HEMOGLOBIN 24.8 PG (27.0-31.0); MEAN CORPUSCULAR HGB CONC 30.9 g/dL (33.0-36.5); MEAN CORPUSCULAR VOLUME 80.2 FL (78-98); MEAN PLATELET VOLUME 12.2 FL (7.4-10.4); MONOCYTES # (AUTO) 1.4 X10'3 (0-0.9); MONOCYTES % (AUTO) 9.2 % (2-12); NEUTROPHILS % (AUTO) 83.6 % (42-75); PLATELET COUNT 309 X10'3 (140-440); RED BLOOD COUNT 3.29 X10'6 (4.20-5.60); RED CELL DISTRIBUTION WIDTH 15.5 % (11.5-14.5); WHITE BLOOD COUNT 15.5 X10'3 (4.5-11.0)
[2023-10-27 07:56] LABS: ALANINE AMINOTRANSFERASE 143 U/L (12-78); ALBUMIN/GLOBULIN RATIO 0.3 (1.1-1.5); ALKALINE PHOSPHATASE 496 IU/L (46-116); ANION GAP 7 (8-16); ASPARTATE AMINO TRANSFERASE 100 U/L (10-37); BILIRUBIN,TOTAL 0.4 MG/DL (0.1-1.0); BLOOD UREA NITROGEN 51 MG/DL (7-18); BUN/CREATININE RATIO 39.5 (10.0-20.0); CALCIUM 9.6 MG/DL (8.5-10.1); CHLORIDE 108 MMOL/L (99-107); CREATININE 1.29 MG/DL (0.40-0.90); GLUCOSE 102 MG/DL (70-104); POTASSIUM 4.4 MMOL/L (3.5-5.1); SODIUM 137 MMOL/L (135-145); TOTAL PROTEIN 4.1 G/DL (6.4-8.2); eCRCL 36 ML/MIN; eGFR 40 ML/MIN
[2023-10-27] MEDS ORDERED: atorvastatin 10mg tablet PO SCH ×2 (08:00→13:49)
[2023-10-27 08:19] LABS: PLATELET ESTIMATE NORMAL
[2023-10-27 08:20] LABS: BURR CELLS FEW; ELLIPTOCYTES FEW; HYPOCHROMASIA 1+
[2023-10-27] MEDS: metoprolol tartrate 25mg tablet PO SCH ×2 (09:45→20:22)
[2023-10-27] MEDS ORDERED: amiodarone 200mg tablet CORPAK SCH (11:44)
[2023-10-27] MEDS ORDERED: acetaminophen 325mg tablet CORPAK PRN (11:44)
[2023-10-27] MEDS ORDERED: DEXTROSE 15 GM of carb/4 tabs (each vial/BOTTLE has 4 tablets) CORPAK PRN ×2 (11:45)
[2023-10-27] MEDS ORDERED: atorvastatin 10mg tablet CORPAK SCH (11:45)
[2023-10-27] MEDS ORDERED: HYDROcodone/acetaminophen 7.5MG/325MG per 15ml UD CUP CORPAK PRN ×2 (11:46)
[2023-10-27] MEDS ORDERED: docusate sodium 100mg/10ml UD cup CORPAK PRN (11:46)
[2023-10-27] MEDS ORDERED: LORazepam 0.5 MG tablet CORPAK PRN (11:47)
[2023-10-27] MEDS ORDERED: mag hydrox/Alum hydrox/simeth 30ml oral suspension CORPAK PRN (11:48)
[2023-10-27] MEDS ORDERED: magnesium hydroxide 30ml (MOM) UD suspension CORPAK PRN (11:48)
[2023-10-27] MEDS ORDERED: metoprolol tartrate 25mg tablet CORPAK SCH (11:49)
[2023-10-27] MEDS ORDERED: rifaximin 550mg tablet CORPAK SCH (11:49)
[2023-10-27] MEDS ORDERED: traZODone 50mg tablet CORPAK SCH (11:54)
[2023-10-27] MEDS ORDERED: LIPASE/PROTEASE/AMYLASE 4,200 unit CAPSULE.DR CORPAK SCH (12:57)
[2023-10-27] MEDS ORDERED: acetaminophen 325mg tablet NG PRN (13:48)
[2023-10-27] MEDS ORDERED: acetaminophen 325mg tablet PO PRN (13:49)
[2023-10-27] MEDS ORDERED: docusate sodium 100mg/10ml UD cup PO PRN (13:50)
[2023-10-27] MEDS ORDERED: DEXTROSE 15 GM of carb/4 tabs (each vial/BOTTLE has 4 tablets) PO PRN ×2 (13:50)
[2023-10-27] MEDS ORDERED: mag hydrox/Alum hydrox/simeth 30ml oral suspension PO PRN (13:52)
[2023-10-27] MEDS ORDERED: LORazepam 0.5 MG tablet PO PRN (13:52)
[2023-10-27] MEDS ORDERED: magnesium hydroxide 30ml (MOM) UD suspension PO PRN (13:53)
[2023-10-27] MEDS: LIPASE/PROTEASE/AMYLASE 4,200 unit CAPSULE.DR PO SCH (17:05)
[2023-10-27] MEDS: rifaximin 550mg tablet PO SCH (20:19)
[2023-10-27] MEDS: traZODone 50mg tablet PO SCH (20:21)
[2023-10-27] MEDS: amiodarone 200mg tablet PO SCH (20:21)
[2023-10-28] MEDS: HYDROcodone/acetaminophen 7.5MG/325MG per 15ml UD CUP PO PRN ×2 (00:21→00:37)
[2023-10-28 00:37] VITALS: RESP 20
== END 2023-10-28 04:30 | DRG 405 ==
LOC: ER 06:29 → ED HOLD 10:08 → ORTHO 4S 10-07 07:48 → PCU 3S 10-08 20:00 → CICU 2S 10-16 00:27 → PCU 3S 10-24 23:20
PROVIDERS: ADMIT Family Medicine; ATTEND Family Medicine
PROC: [UNRECOGNIZED PROCEDURE] (2023-10-15)
PROC: 0FBG0ZZ Excision of Pancreas, Open Approach (ICD-10-PCS; principal; 2023-10-16)
PROC: 07TP0ZZ Resection of Spleen, Open Approach (ICD-10-PCS; 2023-10-16)
PROC: 5A1955Z Respiratory Ventilation, Greater than 96 Consecutive Hours (ICD-10-PCS; 2023-10-16)
PROC: 0BH18EZ Insertion of Endotracheal Airway into Trachea, Via Natural or Artificial Opening Endoscopic (ICD-10-PCS; 2023-10-16)
PROC: 02HV33Z Insertion of Infusion Device into Superior Vena Cava, Percutaneous Approach (ICD-10-PCS; 2023-10-16)
PROC: 0DBU0ZZ Excision of Omentum, Open Approach (ICD-10-PCS; 2023-10-17)
PROC: 0DHA0UZ Insertion of Feeding Device into Jejunum, Open Approach (ICD-10-PCS; 2023-10-17)
PROC: 0W9B30Z Drainage of Left Pleural Cavity with Drainage Device, Percutaneous Approach (ICD-10-PCS; 2023-10-17)
PROC: 0W9930Z Drainage of Right Pleural Cavity with Drainage Device, Percutaneous Approach (ICD-10-PCS; 2023-10-17)
PROC: 0W9B3ZZ Drainage of Left Pleural Cavity, Percutaneous Approach (ICD-10-PCS; 2023-10-20)
PROC: 0W993ZZ Drainage of Right Pleural Cavity, Percutaneous Approach (ICD-10-PCS; 2023-10-20)
PROC: 5A12012 Performance of Cardiac Output, Single, Manual (ICD-10-PCS; 2023-10-28)
DX: K85.91 Acute pancreatitis with uninfected necrosis, unspecified (principal); J96.01 Acute respiratory failure with hypoxia; N17.0 Acute kidney failure with tubular necrosis; I48.20 Chronic atrial fibrillation, unspecified; E87.0 Hyperosmolality and hypernatremia; G93.40 Encephalopathy, unspecified; J90 Pleural effusion, not elsewhere classified; E46 Unspecified protein-calorie malnutrition; R57.8 Other shock; F41.9 Anxiety disorder, unspecified; I12.9 Hypertensive chronic kidney disease with stage 1 through stage 4 chronic kidney disease, or unspecified chronic kidney disease; N18.2 Chronic kidney disease, stage 2 (mild); D72.829 Elevated white blood cell count, unspecified; N20.0 Calculus of kidney; E83.52 Hypercalcemia; E78.00 Pure hypercholesterolemia, unspecified; F17.200 Nicotine dependence, unspecified, uncomplicated; I46.9 Cardiac arrest, cause unspecified; K57.30 Diverticulosis of large intestine without perforation or abscess without bleeding; Z68.24 Body mass index [BMI] 24.0-24.9, adult; Z88.0 Allergy status to penicillin; Z79.899 Other long term (current) drug therapy; Z79.01 Long term (current) use of anticoagulants; Z79.84 Long term (current) use of oral hypoglycemic drugs; Z90.49 Acquired absence of other specified parts of digestive tract; Z90.710 Acquired absence of both cervix and uterus
CPT/HCPCS: 32557; 36415; 36600; 71045; 74018; 74176; 76942; 78707; 80048; 80053; 80061; 80162; 81001; 81025; 82150; 82550; 82570; 82803; 82948; 83036; 83605; 83615; 83690; 83735; 83935; 83986; 84100; 84133; 84134; 84145; 84156; 84157; 84300; 84466; 84484; 84540; 85007; 85008; 85018; 85025; 85651; 86885; 86900; 86901; 87040; 87070; 87075; 87081; 87088; 87205; 88305; 88309; 89051; 90732; 92508; 92616; 92950; 93005; 93306; 93308; 93975; 94002; 94003; 94640; 94760; 97110; 97116; 97161; 97530; 99285; A4314; A4349; A4421; A4615; A4618; A4620; A4649; A6196; A6209; A6212; A6213; A6234; A6243; A6250; A6253; A6258; A6402; A6407; A6449; A7000; A7015; A9562; A9900; B4087; C1751; C1758; C9113; G0378; J0282; J0456; J0694; J0696; J1160; J1170; J1265; J1450; J1650; J1756; J1815; J1940; J1956; J2060; J2185; J2250; J2270; J2405; J2704; J2930; J3010; J3370; J3475; J3480; J3490; J7030; J7040; J7042; J7050; J7120; P9045; P9047